=== PATIENT | female | born 1955 | race Caucasian/White ===

== ENCOUNTER 2016-10-25 09:42 | Day surgery (SDC) | payer BC ==
[~2016-10-25] VITALS: Ht 162.6 cm; Wt 80.2 kg
[~2016-10-25 09:42] MED LIST: AMLO5TAB2 PO; ASPI325T PO; ATEN25TA PO; CEPH-583 PO; CYCL5TAB PO; METH10TA7 PO; OMEP20CA10 PO; ONDA4TAB4 PO; ONDA4TAB7 PO; OXYC-532 PO; OXYC1TAB8 PO; POTA-81 PO
--- OUTSIDE RECORDS SUMMARY | 2016-10-25 09:46 | XMS REPORT | Referral Summary ---
Author Author [facility] Organization [facility] Address Unknown Phone Unavailable Care Team Providers Care Radio Equipment Repairer Name Role Phone Tano Rice Primary Care Physician [phone] Encounter Date(s): 05/29/16 - 05/31/16 [facility] [address] [place] [address] Discharge Disposition: 01-Home or Self Care Attending Physician: Toña Stiles MD Admitting Physician: Toña Stiles MD Vital Signs Most recent to 1 oldest [Reference Range]: Temperature Oral 37.3 degC [35.8-37.3 degC] (05/31/16 9:00 AM) Peripheral Pulse 80 bpm Rate [60-100 bpm] (05/31/16 9:11 AM) Heart Rate Monitored 74 bpm [60-100 bpm] (05/29/16 2:50 PM) Respiratory Rate 18 br/min [14-20 br/min] (05/31/16 9:00 AM) Blood Pressure 109/70 mmHg [90-140/60-90 mmHg] (05/31/16 9:11 AM) Mean Arterial 134 mmHg Pressure, Cuff (05/29/16 2:50 PM) SpO2 94 % (05/31/16 9:00 AM) Problem List Condition Effective Dates Status Health Status Informant slightly abnormal Active brain MRI(Confirmed) Acute Active conjunctivitis(Confi rmed) Acute lower Active UTI(Confirmed) Acute Active folliculitis(Confirm ed) Acute maxillary Active sinusitis(Confirmed) Acute Active pain(Confirmed) Acute pulmonary Active edema(Confirmed) Acute Active vomiting(Confirmed) Anxiety Active disorder(Confirmed) ARF due to 2011 Active gastroenteritis and dehydration(Confirme d) At risk for Active infection(Confirmed) 1 At risk of pressure Active sore(Confirmed) Atelectasis(Confirme Active d) Lump of breast, Active right(Confirmed) perforated TM LT Active EAR(Confirmed) Constipation(Confirm Active ed) Dehydration(Confirme Active d) Acute Active diarrhea(Confirmed) DVT(Confirmed) 1995 Active DVT(Confirmed) 1997 Active Dysphagia(Confirmed) Active Epistaxis(Confirmed) Active Fever(Confirmed) Active Fluid Active imbalance(Confirmed) 2 Goiter(Confirmed) Active Herpes Active zoster(Confirmed) High Active cholesterol(Confirme d) History of abnormal Active Pap smear(Confirmed) Hyperlipidemia(Confi Active rmed) Hypertension(Confirm Active ed) Adult Active hypothyroidism(Confi rmed) Kidney Active disease(Confirmed) Kidney Active stones(Confirmed) Acute left flank Active pain(Confirmed) Oral Active leukoplakia(Confirme d) Hypertension, Active malignant(Confirmed) Breast Active patient cancer(Confirmed) Well adult Active exam(Confirmed) Multinodular Active goiter(Confirmed) Neuropathy, Left Active ulnar nerve(Confirmed) Nodule of finger of Active left hand(Confirmed) Paresthesia(Confirme Active d) Ptosis of eyelid, Active left(Confirmed) Pulmonary 1995 Active embolism(Confirmed) Pulmonary 1997 Active embolism(Confirmed) Depression(Confirmed Active ) Abdominal Active tenderness, RUQ (right upper quadrant)(Confirmed) Thyroid Active disease(Confirmed) Urethral Active calculus(Confirmed) 1Problem added automatically by system based on initiation of At Risk for Infection in Nutrition Plan of Care 2Problem added automatically by system based on initiation of Fluid Volume Imbalance Plan of Care Allergies, Adverse Reactions, Alerts Substance Reaction Severity Status antihistamines1 Malignant hypertension Active atorvastatin rash on legs Active HYDROcodone caused pain and swelling in eyes Active methocarbamol caused swelling in eyes and hand Active simvastatin rash on the legs Active 1PT STATES SHE HAS HAD ANTIHISTAMINES WITH HER CHEMO AND HAS NOT HAD A REACTION THUS FAR. pT STATES SHE HAD MALIGNANT HYPERTENSION WITH ANTIHISTAMINES IN THE PAST. Medications amLODIPine 5 mg oral tablet 5 mg 1 tabs, Oral, Daily, 0 Refill(s) Start Date: 05/29/16 Status: Ordered aspirin 325 mg, Oral, Daily, 0 Refill(s) Start Date: 05/29/16 Status: Ordered atenolol 25 mg oral tablet 25 mg 1 tabs, Oral, Daily, 0 Refill(s) Start Date: 05/29/16 Status: Ordered Keflex 500 mg oral capsule 500 mg 1 caps, Oral, TID, X 5 days, # 15 caps, 0 Refill(s) Start Date: 05/31/16 Stop Date: 06/05/16 Status: Ordered methimazole 5 mg oral tablet 5 mg 1 tabs, Oral, TID, # 90 tabs, 0 Refill(s) Start Date: 05/31/16 Stop Date: 06/30/16 Status: Ordered oxyCODONE See Instructions, 7.5 mg Oral twice a week as needed, 0 Refill(s) Start Date: 05/29/16 Status: Ordered PriLOSEC 40 mg oral delayed release capsule 40 mg 1 caps, Oral, Daily, # 60 caps, 1 Refill(s), Pharmacy: [facility] # [id number], 1 caps Oral BID Start Date: 07/20/15 Status: Ordered Zofran ODT 4 mg, Oral, q4hr, as needed for nausea/vomiting, 0 Refill(s) Start Date: 05/29/16 Status: Ordered Results Hematology Most recent to 1 oldest [Reference Range]: WBC [4.8-10.8 2.8 10*3/uL 10*3/uL] *LOW* (05/31/16 4:58 AM) RBC [4.00-5.20] 4.18 (05/31/16 4:58 AM) Hgb [12.0-16.0 12.0 gm/dL gm/dL] (05/31/16 4:58 AM) Hct [37.0-47.0 %] 36.5 % *LOW* (05/31/16 4:58 AM) MCV [82.0-99.0 fL] 87.3 fL (05/31/16 4:58 AM) MCH [27.0-32.0 pg] 28.7 pg (05/31/16 4:58 AM) MCHC [32.0-36.0 32.9 gm/dL gm/dL] (05/31/16 4:58 AM) RDW [11.5-14.5 %] 12.5 % (05/31/16 4:58 AM) Platelet [150-400 166 10*3/uL 10*3/uL] (05/31/16 4:58 AM) MPV [9.4-12.4 fL] 11.3 fL (05/31/16 4:58 AM) Immature 0.4 % Granulocytes (05/30/16 4:50 AM) [0.0-1.0 %] Neutrophils [51-75 33 % %] *LOW* (05/30/16 4:50 AM) Lymphocytes [20-46 42 % %] (05/30/16 4:50 AM) Monocytes [4-11 %] 19 % *HI* (05/30/16 4:50 AM) Eosinophils [0-4 %] 5 % *HI* (05/30/16 4:50 AM) Basophils [0-2 %] 1 % (05/30/16 4:50 AM) Neutro Absolute 0.86 10*3 [1.90-7.00 10*3] *LOW* (05/30/16 4:50 AM) Lymph Absolute 1.11 10*3 [0.80-3.30 10*3] (05/30/16 4:50 AM) [place] Absolute 0.50 10*3 [0.30-1.00 10*3] (05/30/16 4:50 AM) Eos Absolute 0.14 10*3 [0.00-0.50 10*3] (05/30/16 4:50 AM) Baso Absolute 0.02 10*3 [0.00-0.20 10*3] (05/30/16 4:50 AM) Nucleated RBC 0.0 /100 WBC Automated [0 /100 (05/30/16 4:50 AM) WBC] Coagulation Most recent to 1 oldest [Reference Range]: D-Dimer [0-600 830 ng{FEU}/mL 1 ng{FEU}/mL] *HI* (05/29/16 8:09 PM) 1Result Comment: A D Dimer result of <500 ng/mL FEU has a negative predictive value of approximately 100% for the exclusion of DVT and acute PE. Chemistry Most recent to 1 oldest [Reference Range]: Sodium Lvl [136-144 138 mEq/L mEq/L] (05/31/16 4:58 AM) Potassium Lvl 3.9 mEq/L [3.6-5.1 mEq/L] (05/31/16 4:58 AM) Chloride [99-109 105 mEq/L mEq/L] (05/31/16 4:58 AM) CO2 [22-32 mEq/L] 26 mEq/L (05/31/16 4:58 AM) AGAP [3-20] 7 (05/31/16 4:58 AM) BUN [4-20 mg/dL] 11 mg/dL (05/31/16 4:58 AM) Glucose Lvl [70-100 107 mg/dL mg/dL] *HI* (05/31/16 4:58 AM) Creatinine Lvl 0.63 mg/dL [0.44-1.03 mg/dL] (05/31/16 4:58 AM) eGFR [>60] >60 1 (05/31/16 4:58 AM) Calcium Lvl 9.3 mg/dL [8.6-10.0 mg/dL] (05/31/16 4:58 AM) Albumin Lvl [3.5-4.8 3.3 gm/dL gm/dL] *LOW* (05/29/16 12:45 PM) Total Protein 6.5 gm/dL [6.1-7.9 gm/dL] (05/29/16 12:45 PM) Globulin [1.9-4.3 3.2 gm/dL gm/dL] (05/29/16 12:45 PM) ALT [14-54 U/L] 17 U/L (05/29/16 12:45 PM) AST [15-41 U/L] 25 U/L (05/29/16 12:45 PM) Alk Phos [26-104 88 U/L U/L] (05/29/16 12:45 PM) Bili Total [0.2-1.2 1.2 mg/dL 2 mg/dL] (05/29/16 12:45 PM) Troponin [<0.06 <0.05 ng/mL ng/mL] (05/30/16 4:50 AM) 1Result Comment: Multiply eGFR results by 1.21 for race. 2Result Comment: Naproxen, specifically the metabolite O-desmethylnaproxen, may cause spurious elevation in Total Bilirubin levels. Urinalysis Most recent to 1 oldest [Reference Range]: UA Color Yellow (05/29/16 1:28 PM) UA Appear Cloudy *ABN* (05/29/16 1:28 PM) UA pH [5.0-8.0] 8.0 (05/29/16 1:28 PM) UA Leuk Est Pos 2+ [Negative] *ABN* (05/29/16 1:28 PM) UA Nitrite Negative [Negative] (05/29/16 1:28 PM) UA Protein Negative [Negative] (05/29/16 1:28 PM) UA Glucose Negative [Negative] (05/29/16 1:28 PM) UA Ketones Trace [Negative] *ABN* (05/29/16 1:28 PM) UA Urobilinogen 2.0 mg/dL [<1.0 mg/dL] *ABN* (05/29/16 1:28 PM) UA Bili [Negative] Negative (05/29/16 1:28 PM) UA Blood [Negative] Pos 1+ *ABN* (05/29/16 1:28 PM) UA Spec Grav 1.015 [1.003-1.030] (05/29/16 1:28 PM) Type Clean Catch (05/29/16 1:28 PM) UA WBC [0-4] 10-20 *ABN* (05/29/16 1:28 PM) UA RBC [0-2] 5-10 *ABN* (05/29/16 1:28 PM) Epithelial Cells 0-2 (05/29/16 1:28 PM) UA Bacteria Numerous *ABN* (05/29/16 1:28 PM) Crystals Amorphous (05/29/16 1:28 PM) UA Hyal Cast [0-3] 4-6 *ABN* (05/29/16 1:28 PM) UA Mucous Present (05/29/16 1:28 PM) Microbiology Reports TEST: Urine Culture STATUS: Auth (Verified) BODY SITE: SOURCE: Urine COLLECTED DATE/TIME: 05/29/16 1:28 PM Urine Culture Other mixed blossom present - - - - - - - Positive urine culture (even if >100,000 cfu/ml) without presence of symptoms does not require antibiotic treatment unless the patient is or undergoing urinary surgery. Please document as bacteriuria. Enterococcus faecalis >100,000 cfu/ml ORGANISM:Enterococcus faecalis Immunizations Vaccine Date Refusal Reason tetanus/diphth/pertuss (Tdap) adult/adol 12/15/06 pneumococcal 23-polyvalent vaccine 12/02/03 tetanus-diphth toxoids (Td) adult/adol 09/06/96 Procedures Procedure Date Related Diagnosis Body Site Lung - needle biopsy1, 2 05/29/16 Mastectomy3, 4 09/21/15 Esophagogastroduodenoscopy 07/16/15 Fine needle biopsy of lymph node5 04/16/15 Insertion of central venous catheter using 04/16/15 doppler ultrasound (US) guidance6 Colonoscopy7 07/11/14 Laminectomy and discectomy2012 Colonoscopy9 05/21/10 Cardiac catheterization 1995 LASIK - eye surgery twice OD, once OS 1994 Appendectomy 1990 REGAN - with appendectomy 1990 Dilation and curettage 1975 Left Mastoidectomy 1975 Tonsillectomy 1965 Adenoidectomy Cystoscopy/Laser vaporization x4 Echocardiogram Lithotripsy x 2 1about 6 weeks ago 2x2 lung biopsy 3Preoperative injection of isosulfan blue involving left breast Right Mastectomy Right axillary dissection Left prophylactic mastectomy Left axillary sentinel lymph node biopsy 4Left axillary node 2 negative for metastasis. Right axillary contents negative for metastasis. Left breast simple mastectomy, no in situ or invasive neoplasm identified. Right breast simple mastectomy, previous biopsy sites with chronic inflammation, fibrosis and remote hemorrhage. No residual in situ or invasive neoplasm identified 5Right axilla - metastatic poorly - differentiated carcinoma, compatiable with breast primary. Tumor at least 2 mm diameter. 6Insert PowerPort catheter under sono and fluoscopy. 7Normal, repeat in 10 years 8L4-5 9tubular adenoma x3 Social History Social History Type Response Smoking Status Former smoker; Tobacco use per day: Less than 1/4 pack; Number of years: 10 Assessment and Plan No data available for this section
--- OUTSIDE RECORDS SUMMARY | 2016-10-25 09:47 | XMS REPORT | Referral Summary ---
Author Author [facility], [facility] Organization [facility] Address Unknown Phone Unavailable Care Team Providers Care Document Control Associate Name Role Phone Tano Rice Primary Care Physician [phone] Encounter Date(s): 05/23/16 - 05/23/16 [facility], [address] [place] [id number]- Discharge Diagnosis: Esophageal dysphagia Discharge Diagnosis: Mid back pain on left side Discharge Diagnosis: Acute lower UTI Discharge Diagnosis: Acute renal failure Discharge Diagnosis: Hypertension Discharge Diagnosis: Ureterolithiasis Discharge Diagnosis: Granulomatous lymphadenitis Discharge Diagnosis: Toxic multinodular goiter Discharge Disposition: 01-Home or Self Care Attending Physician: Doug Rice MD Admitting Physician: Doug Rice MD Vital Signs Most recent to 1 oldest [Reference Range]: Temperature Tympanic 36.9 degC [36.6-38.1 degC] (05/23/16 11:03 AM) Peripheral Pulse 88 bpm Rate [60-100 bpm] (05/23/16 11:03 AM) Blood Pressure 140/80 mmHg [90-140/60-90 mmHg] (05/23/16 11:03 AM) Problem List Condition Effective Dates Status Health Status Informant slightly abnormal Active brain MRI(Confirmed) Acute Active conjunctivitis(Confi rmed) Acute lower Active UTI(Confirmed) Acute Active folliculitis(Confirm ed) Acute maxillary Active sinusitis(Confirmed) Acute pulmonary Active edema(Confirmed) Acute Active vomiting(Confirmed) Anxiety Active disorder(Confirmed) ARF due to 2011 Active gastroenteritis and dehydration(Confirme d) Atelectasis(Confirme Active d) Lump of breast, Active right(Confirmed) perforated TM LT Active EAR(Confirmed) Constipation(Confirm Active ed) Dehydration(Confirme Active d) Acute Active diarrhea(Confirmed) DVT(Confirmed) 1995 Active DVT(Confirmed) 1997 Active Dysphagia(Confirmed) Active Epistaxis(Confirmed) Active Fever(Confirmed) Active Goiter(Confirmed) Active Herpes Active zoster(Confirmed) High Active [...] d) Ptosis of eyelid, Active left(Confirmed) Pulmonary 1996 Active embolism(Confirmed) Pulmonary 1998 Active embolism(Confirmed) Depression(Confirmed Active ) Abdominal Active tenderness, RUQ (right upper quadrant)(Confirmed) Thyroid Active disease(Confirmed) Urethral Active calculus(Confirmed) Allergies, Adverse Reactions, Alerts Substance Reaction Severity Status antihistamines1 Malignant hypertension Active atorvastatin rash on legs Active HYDROcodone caused pain and swelling in eyes Active methimazole palpitations, mal[place]ise Active methocarbamol caused swelling in eyes and hand Active simvastatin rash on the legs Active 1PT STATES SHE HAS HAD ANTIHISTAMINES WITH HER CHEMO AND HAS NOT HAD A REACTION THUS FAR. pT STATES SHE HAD MALIGNANT HYPERTENSION WITH ANTIHISTAMINES IN THE PAST. Medications amLODIPine 5 mg oral tablet See Instructions, TAKE ONE TABLET BY MOUTH DAILY . MAY TAKE AN EXTRA 2.5-5 MG NEEDED FOR SYSTOLIC BP.160 MM HG, # 30 tabs, eRx: [facility] #[id number], TAKE ONE TABLET BY MOUTH DAILY . MAY TAKE AN EXTRA 2.5-5 MG NEEDED FOR SYSTOLIC BP.160 MM HG Start Date: 05/09/16 Status: Ordered atenolol 25 mg oral tablet 25 mg 1 tabs, Oral, Daily, and takes an additional one occasionally as needed for elevated BP, # 60 tabs, 11 Refill(s), Pharmacy: [facility] #[id number], 1 tabs Oral BID Start Date: 11/05/15 Status: Ordered ibuprofen 200 mg oral tablet 600 mg 3 tabs, Oral, Daily, as needed for headache, and joint pains, 0 Refill(s) Start Date: 10/16/15 Status: Ordered Klor-Con M20 oral tablet, extended release 20 mEq 1 tabs, Oral, Daily, # 60 tabs, 2 Refill(s), Pharmacy: [facility] # [id number], 1 tabs Oral BID Start Date: 08/11/15 Status: Ordered Lomotil 2.5 mg-0.025 mg oral tablet See Instructions, 2 tablets oral after first loose stool, then 1 up 8 per 24 hours, 0 Refill(s) Start Date: 06/18/15 Status: Ordered Percocet 7.5/325 oral tablet 1 tabs, Oral, BID, as needed for pain, # 20 tabs, 0 Refill(s) Start Date: 06/18/15 Status: Ordered PriLOSEC 40 mg oral delayed release capsule 40 mg 1 caps, Oral, Daily, # 60 caps, 1 Refill(s), Pharmacy: [facility] # [id number], 1 caps Oral BID Start Date: 07/20/15 Status: Ordered propylthiouracil 50 mg oral tablet 50 mg 1 tabs, Oral, TID, # 90 tabs, 11 Refill(s), Pharmacy: [facility] # [id number], 1 tabs Oral TID Start Date: 05/23/16 Status: Ordered Zofran 8 mg oral tablet 8 mg 1 tabs, Oral, q8hr, as needed for nausea/vomiting, 0 Refill(s) Start Date: 05/16/16 Status: Ordered Results Hematology Most recent to 1 oldest [Reference Range]: WBC [4.8-10.8 5.0 10*3/uL 10*3/uL] (05/23/16 12:38 PM) RBC [4.00-5.20] 4.52 (05/23/16 12:38 PM) Hgb [12.0-16.0 13.3 gm/dL gm/dL] (05/23/16 12:38 PM) Hct [37.0-47.0 %] 39.7 % (05/23/16 12:38 PM) MCV [82.0-99.0 fL] 87.8 fL (05/23/16 12:38 PM) MCH [27.0-32.0 pg] 29.4 pg (05/23/16 12:38 PM) MCHC [32.0-36.0 33.5 gm/dL gm/dL] (05/23/16 12:38 PM) RDW [11.5-14.5 %] 12.6 % (05/23/16 12:38 PM) Platelet [150-400 239 10*3/uL 10*3/uL] (05/23/16 12:38 PM) MPV [8.8-14.8 fL] 10.9 fL (05/23/16 12:38 PM) Neutrophils [51-75 49 % %] *LOW* (05/23/16 12:38 PM) Lymphocytes [20-46 32 % %] (05/23/16 12:38 PM) Monocytes [4-11 %] 17 % *HI* (05/23/16 12:38 PM) Eosinophils [0-4 %] 2 % (05/23/16 12:38 PM) Basophils [0-2 %] 0 % (05/23/16 12:38 PM) Neutro Absolute 2.45 10*3 [1.90-7.00 10*3] (05/23/16 12:38 PM) Lymph Absolute 1.60 10*3 [0.80-3.30 10*3] (05/23/16 12:38 PM) [place] Absolute 0.85 10*3 [0.30-1.00 10*3] (05/23/16 12:38 PM) Eos Absolute 0.10 10*3 [0.00-0.50 10*3] (05/23/16 12:38 PM) Baso Absolute 0.00 10*3 [0.00-0.20 10*3] (05/23/16 12:38 PM) Differential Manual *ABN* (05/23/16 12:38 PM) Chemistry Most recent to 1 oldest [Reference Range]: Sodium Venous 142 mmol/L [136-145 mmol/L] (05/23/16 12:38 PM) Potassium Venous 3.7 mmol/L 1 [3.5-5.1 mmol/L] (05/23/16 12:38 PM) Calcium Ionized 1.33 mmol/L Venous [1.10-1.30 *HI* mmol/L] (05/23/16 12:38 PM) Total CO2 Venous 25 mmol/L [24-29 mmol/L] (05/23/16 12:38 PM) Glucose Venous 110 mg/dL [70-100 mg/dL] *HI* (05/23/16 12:38 PM) BUN Venous [8-26] 17 (05/23/16 12:38 PM) Creatinine Venous 0.7 mg/dL [0.6-1.2 mg/dL] (05/23/16 12:38 PM) Venous CL [98-109 101 mmol/L mmol/L] (05/23/16 12:38 PM) T4 Free [0.7-1.5 3.0 ng/dL ng/dL] *HI* (05/23/16 12:38 PM) TSH [0.35-4.94] <0.01 *LOW* (05/23/16 12:38 PM) T3 Free [1.7-3.7 17.6 pg/mL pg/mL] *HI* (05/23/16 12:38 PM) 1Result Comment: This test was performed on a whole blood specimen. The presence or absence of hemolysis cannot be assessed. Hemolysis can falsely elevate potassium levels. Normals are for venous specimens only. Urinalysis Most recent to 1 oldest [Reference Range]: UA Color Yellow (05/23/16 12:50 PM) UA Appear Cloudy *ABN* (05/23/16 12:50 PM) UA pH [5.0-8.0] 5.5 (05/23/16 12:50 PM) UA Leuk Est Negative [Negative] (05/23/16 12:50 PM) UA Nitrite Negative [Negative] (05/23/16 12:50 PM) UA Protein Negative [Negative] (05/23/16 12:50 PM) UA Glucose Negative [Negative] (05/23/16 12:50 PM) UA Ketones Negative [Negative] (05/23/16 12:50 PM) UA Urobilinogen 1.0 mg/dL [<1.0 mg/dL] (05/23/16 12:50 PM) UA Bili [Negative] Negative (05/23/16 12:50 PM) UA Blood [Negative] Negative (05/23/16 12:50 PM) UA Spec Grav 1.025 [1.003-1.030] (05/23/16 12:50 PM) Type Clean Catch (05/23/16 12:50 PM) Immunizations Vaccine Date Refusal Reason tetanus/diphth/pertuss (Tdap) adult/adol 12/15/06 pneumococcal 23-polyvalent vaccine 12/02/03 tetanus-diphth toxoids (Td) adult/adol 09/06/96 Procedures Procedure Date Related Diagnosis Body Site Collection of venous blood by venipuncture 05/23/16 Mastectomy1, 2 09/21/15 Esophagogastroduodenoscopy 07/16/15 Fine needle biopsy of lymph node3 04/16/15 Insertion of central venous catheter using 04/16/15 doppler ultrasound (US) guidance4 Colonoscopy5 07/11/14 Laminectomy and discectomy6 2012 Colonoscopy7 05/21/10 Cardiac catheterization 1995 LASIK - eye surgery twice OD, once OS 1994 Appendectomy 1990 REGAN - with appendectomy 1990 Dilation and curettage 1975 Left Mastoidectomy 1975 Tonsillectomy 1965 Adenoidectomy Cystoscopy/Laser vaporization x4 Echocardiogram Lithotripsy x 2 1Preoperative injection of isosulfan blue involving left breast Right Mastectomy Right axillary dissection Left prophylactic mastectomy Left axillary sentinel lymph node biopsy 2Left axillary node 2 negative for metastasis. Right axillary contents negative for metastasis. Left breast simple mastectomy, no in situ or invasive neoplasm identified. Right breast simple mastectomy, previous biopsy sites with chronic inflammation, fibrosis and remote hemorrhage. No residual in situ or invasive neoplasm identified 3Right axilla - metastatic poorly - differentiated carcinoma, compatiable with breast primary. Tumor at least 2 mm diameter. 4Insert PowerPort catheter under sono and fluoscopy. 5Normal, repeat in 10 years 6L4-5 7tubular adenoma x3 Social History Social History Type Response Smoking Status Former smoker; Tobacco use per day: Less than 1/4 pack; Number of years: 10 Assessment and Plan Extracted from: Title: Ambulatory Patient Education Author: Doug Rice MD Date: Allergy Dysphagia Swallowing problems (dysphagia) occur when solids and liquids seem to stick in your throat on the way down to your stomach, or the food takes longer to get to the stomach. Other symptoms include regurgitating food, noises coming from the throat, chest discomfort with swallowing, and a feeling of fullness or the feeling of something being stuck in your throat when swallowing. When blockage in your throat is complete, it may be associated with drooling. CAUSES Problems with swallowing may occur because of problems with the muscles. The food cannot be propelled in the usual manner into your stomach. You may have ulcers, scar tissue, or inflammation in the tube down which food travels from your mouth to your stomach (esophagus), which blocks food from passing normally into the stomach. Causes of inflammation include: Acid reflux from your stomach into your esophagus. Infection. Radiation treatment for cancer. Medicines taken without enough fluids to wash them down into your stomach. You may have nerve problems that prevent signals from being sent to the muscles of your esophagus to contract and move your food down to your stomach. Globus pharyngeus is a relatively common problem in which there is a sense of an obstruction or difficulty in swallowing, without any physical abnormalities of the swallowing passages being found. This problem usually improves over time with reassurance and testing to rule out other causes. DIAGNOSIS Dysphagia can be diagnosed and its cause can be determined by tests in which you swallow a white substance that helps illuminate the inside of your throat ( contrast medium) while X-rays are taken. Sometimes a flexible telescope that is inserted down your throat (endoscopy) to look at your esophagus and stomach is used. TREATMENT If the dysphagia is caused by acid reflux or infection, medicines may be used. If the dysphagia is caused by problems with your swallowing muscles, swallowing therapy may be used to help you strengthen your swallowing muscles. If the dysphagia is caused by a blockage or mass, procedures to remove the blockage may be done. HOME CARE INSTRUCTIONS Try to eat soft food that is easier to swallow and check your weight on a daily basis to be sure that it is not decreasing. Be sure to drink liquids when sitting upright (not lying down). SEEK MEDICAL CARE IF: You are losing weight because you are unable to swallow. You are coughing when you drink liquids (aspiration). You are coughing up partially digested food. SEEK IMMEDIATE MEDICAL CARE IF: You are unable to swallow your own saliva(. You are having shortness of breath or a fever, or both.( You have a hoarse voice along with difficulty swallowing. MAKE SURE YOU: Understand these instructions. Will watch your condition. Will get help right away if you are not doing well or get worse. This information is not intended to replace advice given to you by your health care provider. Make sure you discuss any questions you have with your health care provider. Document Released: 07/21/2001 Document Revised: 08/14/2015 Document Reviewed: [employer] Interactive Patient Education 2016 [employer] No follow up information was provided. Extracted from: Title: multiple problems Author: Doug Rice MD Date: 05/23/16 Impression and Plan Diagnosis Acute lower UTI (PSH03-KO N30.00, Discharge, Medical). Acute renal failure (TIO45-VP N17.9, Discharge, Medical). Esophageal dysphagia (QIC16-RY R13.14, Discharge, Medical). Granulomatous lymphadenitis (NLG00-TF I88.1, Discharge, Medical). Hypertension (ABD21-TY I10, Discharge, Medical). Mid back pain on left side (TBO36-JO M54.9, Discharge, Medical). Toxic multinodular goiter (RZL40-PM E05.20, Discharge, Medical). Ureterolithiasis (WCR87-ZI N20.1, Discharge, Medical). Plan: 1) Take the Propylthiouracil three times a day. 2) See Dr. Guzman. 3) Drink at least one quart of Gatoraid or Pedialyte daily + extra fluids. 4) CT without contrast this week. 5) Lab today. 6) See me in 3-4 weeks. 7) Get back on the Atenolol. 8) Consider a barium esophagram.. Orders Orders (Selected) Outpatient Orders Ordered Office Visit Level 5 Est [id number]: Canceled CT Abdomen Pelvis w/o Contrast: Future (On Hold) Angiotensin Converting Enzyme-Nickerson: CBC w/ Differential: CT Abdomen Pelvis w/o Contrast: CT Chest w/ Contrast: Free T4: Metabolic Panel i-STAT: Routine Urinalysis: T3 Free: TSH 3rd Generation: Prescriptions Prescribed propylthiouracil 50 mg oral tablet: 50 mg=1 tabs, Oral, TID, 90 tabs, 11 Refill( s). Dx/Order Association Plan: Diagnosis: Acute lower UTI Comment: Ordered: Office Visit Level 5 Est [id number]; 05/23/16 12:03:00 CDT, Acute renal failure | Hypertension | Mid back pain on left side | Ureterolithiasis | Toxic multinodular goiter | Acute lower UTI Other status: Routine Urinalysis; Urine, Clean Catch, Routine collect, 05/23/16 12:32:00 CDT, Once, Stop date 05/23/16 12:32:00 CDT, Nurse Collect Non-Blood, Acute lower UTI | Ureterolithiasis (Completed) Diagnosis: Acute renal failure Comment: Ordered: Office Visit Level 5 Est [id number]; 05/23/16 12:03:00 CDT, Acute renal failure | Hypertension | Mid back pain on left side | Ureterolithiasis | Toxic multinodular goiter | Acute lower UTI Other status: CBC w/ Differential; Blood, Routine Collect, 12:31:00 CDT, Once, Stop date 05/23/16 12:31:00 CDT, Lab Collect, Hypertension | Acute renal failure | Ureterolithiasis (Completed) Metabolic Panel i-STAT; Blood, Routine Collect, 05/23/16 12:31:00 CDT, Once, Stop date 05/23/16 12:31:00 CDT, Lab Collect, Acute renal failure | Hypertension | Ureterolithiasis (Canceled) Diagnosis: Esophageal dysphagia Comment: Diagnosis: Granulomatous lymphadenitis Comment: Diagnosis: Hypertension Comment: Ordered: Office Visit Level 5 Est [id number]; 05/23/16 12:03:00 CDT, Acute renal failure | Hypertension | Mid back pain on left side | Ureterolithiasis | Toxic multinodular goiter | Acute lower UTI Other status: CBC w/ Differential; Blood, Routine Collect, 12:31:00 CDT, Once, Stop date 05/23/16 12:31:00 CDT, Lab Collect, Hypertension | Acute renal failure | Ureterolithiasis (Completed) Metabolic Panel i-STAT; Blood, Routine Collect, 05/23/16 12:31:00 CDT, Once, Stop date 05/23/16 12:31:00 CDT, Lab Collect, Acute renal failure | Hypertension | Ureterolithiasis (Canceled) Diagnosis: Mid back pain on left side Comment: Ordered: Office Visit Level 5 Est [id number]; 05/23/16 12:03:00 CDT, Acute renal failure | Hypertension | Mid back pain on left side | Ureterolithiasis | Toxic multinodular goiter | Acute lower UTI Diagnosis: Toxic multinodular goiter Comment: Ordered: Office Visit Level 5 Est [id number]; 05/23/16 12:03:00 CDT, Acute renal failure | Hypertension | Mid back pain on left side | Ureterolithiasis | Toxic multinodular goiter | Acute lower UTI Diagnosis: Ureterolithiasis Comment: Ordered: Office Visit Level 5 Est [id number]; 05/23/16 12:03:00 CDT, Acute renal failure | Hypertension | Mid back pain on left side | Ureterolithiasis | Toxic multinodular goiter | Acute lower UTI Other status: CBC w/ Differential; Blood, Routine Collect, 12:31:00 CDT, Once, Stop date 05/23/16 12:31:00 CDT, Lab Collect, Hypertension | Acute renal failure | Ureterolithiasis (Completed) Routine Urinalysis; Urine, Clean Catch, Routine collect, 05/23/16 12:32:00 CDT, Once, Stop date 05/23/16 12:32:00 CDT, Nurse Collect Non-Blood, Acute lower UTI | Ureterolithiasis (Completed) Metabolic Panel i-STAT; Blood, Routine Collect, 05/23/16 12:31:00 CDT, Once, Stop date 05/23/16 12:31:00 CDT, Lab Collect, Acute renal failure | Hypertension | Ureterolithiasis (Canceled) Additional Orders: Comment: Ordered: propylthiouracil 50 mg oral tablet,50 mg 1 tabs, Oral, TID , # 90 tabs, 11 Refill(s), Pharmacy: [facility] #[id number], 1 tabs Oral TID End of Orders ."
--- OUTSIDE RECORDS SUMMARY | 2016-10-25 09:47 | XMS REPORT | Continuity of Care Document ---
Author Author [facility] Organization [facility] Address Unknown Phone Unavailable Support Name Relationship Address Phone ROCK MONTIEL MD Caregiver [address] [place] [address] Unavailable AMANDA VAUGHN MD Caregiver [address] [place] [address] Unavailable ANGUS RAMIREZ Next Of Kin [address] [place], [place] [id number] Insurance Providers Guarantor Rohan Lambert Address [address] [place] [address] Email [email or web address] [email or web address] [facility] Policy Number [id number] Subscriber's Name RaeannamberRohan Eden Relationship 18 Self Group Number [id number] Effective Date 15 Advance Directives Directive Response Recorded Date/Time Ordered Resuscitation Status Full Code 09/30/16 1:55pm Resuscitation Documents on File No 10/03/16 7:40am DPOA for Healthcare Only No 10/03/16 7:40am Living Will No 10/03/16 7:40am Problems Active Problems Medical Problem Onset Date Status Abdominal pain Unknown Acute Breast cancer Unknown Acute DEHYDRATION Unknown Acute DEHYDRATION Unknown Acute DYSPNEA Unknown Acute DYSPNEA Unknown Acute Leukocytosis Unknown Acute POST OP PAIN Unknown Acute POST OP PAIN Unknown Acute Shingles Unknown Acute Past Problems Medical Problem Onset Date Enterovirus infection Unknown UTI (urinary tract infection) Unknown Medications Current Home Medications Medication Dose Units Route Directions Days Qty Instructions Start Date Amlodipine Besylate 5 Mg Tablet 5 Mg Oral Daily 07/10/14 Aspirin 325 Mg Tablet 325 Mg Oral Daily as needed for Prn Orders 05/15/16 Atenolol 25 Mg Tablet 25 Mg Oral Daily 05/15/16 Cephalexin (Keflex) 500 Mg Capsule 500 Mg Oral Daily 15 Capsule Cyclobenzaprine Hcl 5 Mg Tablet 1 Tab Oral Every 6 Hours as needed for Muscle Spasm 10 Tablet 10/04/16 Methimazole 10 Mg Tablet 1.5 Tab Oral Daily 05/15/16 Omeprazole 20 Mg Capsule.dr 20 Mg Oral Before Breakfast Take 1 capsule, by mouth, one time a day (before breakfast). 09/30/16 Ondansetron (Zofran Odt) 4 Mg Tab.rapdis 4 Mg Oral Q6h/0300,0900,1500,2100 07/10/15 Ondansetron Hcl (Zofran) 4 Mg Tablet 4 Mg Oral Every 6 Hours as needed for Nausea &/Or Vomiting 6 Tablet 10/04/16 Oxycodone Hcl/Acetaminophen (Percocet 5-325 Mg Tablet) 5-325 Tablet 1-2 Tab Oral Every 4-6 Hours Prn as needed for Pain 40 Tablet 10/04/16 Oxycodone Hcl/Acetaminophen (Oxycodon-Acetaminophen 7.5-325) 7.5-325 Tablet 1 Tab Oral Every 4-6 Hours as needed for Pain 05/15/16 Potassium Chloride 20 Meq Tablet.er 20 Meq Oral Daily 07/10/15 Past Home Medications Medication Directions Ordered Status Albuterol 17 Gm Aer.refill, 17 Gm Inhalation 05/14/10 Discontinued Aspirin (Aspir 81) 81 Mg Tablet.dr, 81 Mg Oral 04/30/10 Discontinued Chantix , 04/30/10 Discontinued Ciprofloxacin Hcl (Cipro) 500 Mg Tablet, 500 Mg Oral Twice A Day 01/31/12 Discontinued Hydrocodone Bit/Acetaminophen (Woodward 7.5/325 Tablet) 1 Tab Tablet, 1 Tab Oral As Needed 04/11/13 Discontinued Ibuprofen , 04/30/10 Discontinued Levothyroxine Sodium 25 Mcg Tablet, 25 Mcg Oral Before Breakfast 07/10/14 Discontinued Lisinopril 5 Mg Tablet, 5 Mg Oral Daily 07/10/14 Discontinued Lovastatin , 04/30/10 Discontinued Omeprazole 40 Mg Capsule.dr, 40 Mg Oral Daily 05/15/16 Discontinued Omeprazole 10 Mg Capsule, 10 Mg Oral As Needed 07/11/14 Discontinued Omeprazole 20 Mg Tablet.dr, 20 Mg Oral Before Breakfast 07/10/14 Discontinued Potassium , 04/30/10 Discontinued Potassium Chloride (Klor-Con M20) 20 Meq Tab.prt.sr, 20 Meq Oral Daily Discontinued Promethazine Hcl (Phenergan) 25 Mg Tablet, 25 Mg Oral As Needed 04/11/13 Discontinued Robaxin , Oral As Needed 04/11/13 Discontinued Synthroid , 04/30/10 Discontinued Triamterine , 04/30/10 Discontinued Social History Social History Problem Response Recorded Date/Time Onset Date Status Reason for Hospitalization BILATERAL TISSUE EXPANDERS 10/04/2016 8:54am Not Applicable Not Applicable Chewing Tobacco Status No 04/13/2013 10:08pm Not Applicable Not Applicable Hx Substance Use No 10/03/2016 7:40am Not Applicable Not Applicable Hx Alcohol Use No 10/03/2016 7:40am Not Applicable Not Applicable Has the pt used tobacco in the last 12 months No 10/03/2016 7:40am Not Applicable Not Applicable Query Response Start Date Stop Date Smoking Status Never smoker Hospital Discharge Instructions Instructions: Care Instructions: I was in the hospital because (patient own words): tissue expanders Discharge Diet: Regular Discharge Activity: Refer to pre-operative packet Follow Up Appointments: Follow up with Dr. Montiel on October 06 at 1:40pm Pending Lab / Results: No Pending Lab Patient Instructions: Take Keflex 500 mg daily while drains are in place. Record drainage amounts on log sheet and bring with you to your follow up appointments. Expected Signs/Symptoms: Refer to pre-operative packet Notify Physician If: Refer to pre-operative packet During Business Hours:: Call the office with questions or concerns [phone] After Business Hours:: Call [phone] and have the tomahawk weapon system operator page the physician Pain Management/Treatment: Refer to pre-operative packet Wound/Incision Care: No showering or bathing. You may take sponge baths. You may change gauze dressing if soiled. Condition at time of discharge: Good Plan of Care Discharge Date 10/04/16 10:10am Instructions/Education Provided [facility] Prescriptions See Medication Section Functional Status Query Response Date Recorded Assistive Devices None October 03, 2016 1:23pm Activity Limitations None October 03, 2016 1:23pm Feeding Ability Independent October 03, 2016 1:23pm Toileting Ability Independent October 03, 2016 1:23pm Grooming Ability Independent October 03, 2016 1:23pm Dressing Ability Independent October 03, 2016 1:23pm Driving Ability Independent October 03, 2016 1:23pm Housework Ability Independent October 03, 2016 1:23pm Meal Preparation Ability Independent October 03, 2016 1:23pm Stair Climbing Ability Independent October 03, 2016 1:23pm Ability to complete ADL's impeded by No change October 03, 2016 1:23pm Cognitive/Perceptual Impairments None October 03, 2016 1:23pm Preferred Method of Learning Reading October 03, 2016 1:23pm Allergies, Adverse Reactions, Alerts Allergen Type Severity Reaction Status Last Updated Antihistamines - Alkylamine Adverse Reaction Intermediate HYPOTENSION Active 10/03/16 Tetracyclic antidepressant Adverse Reaction Mild stomach issues Active Hydrocodone Allergy Unknown SWELLING IN EYES Active 10/03/16 Methocarbamol Allergy Unknown SWELLING IN EYES AND HAND Active 10/03/16 Simvastatin Allergy Unknown RASH Active 10/03/16 Atorvastatin Allergy Unknown RASH Active 10/03/16 Immunizations Query Response on File Recorded Date/Time Hx Influenza Vaccination Y fall 201510/03/16 7:40am Hx Pneumococcal Vaccination Y doesnt' know when 10/03/16 7:40am Hx Tetanus, Diptheria, Pertussis No 01/08/15 8:21pm Hx Influenza Vaccination Y fall 201510/03/16 7:40am Hx Tetanus, Diptheria, Pertussis No 01/08/15 8:21pm Influenza Vaccine Hx 09/201505/15/16 7:30am Vital Signs Acute Vital Signs Vital Response Date/Time Temperature (Fahrenheit) 96.9 deg F (96.8 - 99.1) 10/04/2016 7:16am Temperature (Calculated Celsius) 36.49593 degrees C (36.0 - 37.3) 10/04/2016 7:16am Temperature Source Oral 10/04/2016 7:16am Pulse Rate (adult) 71 bpm (60 - 100) 10/04/2016 7:16am Respiratory Rate 16 breaths/min (10 - 20) 10/04/2016 7:16am O2 Sat by Pulse Oximetry 92 % (90 - 100) 10/04/2016 7:16am Oxygen Delivery Method Nasal Cannula 10/04/2016 7:16am Oxygen Delivery Method Nasal Cannula 10/03/2016 1:27pm Oxygen Flow Rate 1.00 L/min 10/04/2016 7:16am Blood Pressure 111/69 mm Hg 10/04/2016 7:16am Blood Pressure Source Automatic Cuff 10/04/2016 7:16am Height (Feet) 5 feet 10/03/2016 7:11am Height (Inches) 4.00 inches 10/03/2016 7:11am Weight (Kilograms) 84.000 kg 10/04/2016 7:16am Body Mass Index (BMI) 30.9 10/03/2016 7:11am Results No known relevant diagnostic tests, laboratory data and/or discharge summary. Procedures Procedure Status Date Provider(s) Breast reconstruction Completed 10/03/16 ROCK MONTIEL MD Encounters Encounter Location Arrival/Admit Date Discharge/Depart Date Attending Provider Departed [facility] 10/03/16 6:50am 10/04/16 10 :10am ROCK MONTIEL MD
--- OUTSIDE RECORDS SUMMARY | 2016-10-25 09:47 | XMS REPORT | Referral Summary ---
Author Author [facility], Family Medicine Organization [facility] Address Unknown Phone Unavailable Care Team Providers Care Environmental Field Professional Name Role Phone Tano Rice Primary Care Physician [phone] Encounter Date(s): 09/28/16 - 09/28/16 [facility], [address] [place] [id number] Discharge Diagnosis: Renal lithiasis Discharge Diagnosis: Depression Discharge Diagnosis: Acute bronchitis Discharge Diagnosis: Need for Tdap vaccination Discharge Diagnosis: Well adult exam Discharge Diagnosis: Benign essential hypertension Discharge Diagnosis: Granulomatous lymphadenitis Discharge Diagnosis: Toxic multinodular goiter Discharge Diagnosis: Primary hypercholesterolemia Discharge Diagnosis: History of breast cancer Discharge Diagnosis: Acute lower UTI Discharge Disposition: 01-Home or Self Care Attending Physician: Doug Rice MD Admitting Physician: Doug Rice MD Vital Signs Most recent to 1 oldest [Reference Range]: Temperature Tympanic 37.0 degC [36.6-38.1 degC] (09/28/16 7:44 AM) Peripheral Pulse 56 bpm Rate [60-100 bpm] *LOW* (09/28/16 7:44 AM) Blood Pressure 126/80 mmHg [90-140/60-90 mmHg] (09/28/16 7:44 AM) Problem List Condition Effective Dates Status [...] caused swelling in eyes and hand Active promethazine felt like I was dying, anxiety Active simvastatin rash on the legs Active tetracycline nausea/vomiting Active 1PT STATES SHE HAS HAD ANTIHISTAMINES WITH HER CHEMO AND HAS NOT HAD A REACTION THUS FAR. pT STATES SHE HAD MALIGNANT HYPERTENSION WITH ANTIHISTAMINES IN THE PAST. Medications amLODIPine 5 mg oral tablet See Instructions, TAKE ONE TABLET BY MOUTH DAILY . MAY TAKE AN EXTRA 2.5-5 MG NEEDED FOR SYSTOLIC BP.160 MM HG, # 30 tabs, 1 Refill(s), eRx: [facility] #[id number], TAKE ONE TABLET BY MOUTH DAILY . MAY TAKE AN EXTRA 2.5-5 MG NEEDED FOR SYSTOLI... Start Date: 08/12/16 Status: Ordered amoxicillin-clavulanate 875 mg-125 mg oral tablet 1 tabs, Oral, q12hr, X 10 days, # 20 tabs, 0 Refill(s), Pharmacy: [facility] #[id number] Start Date: 09/19/16 Stop Date: 09/29/16 Status: Ordered atenolol 25 mg oral tablet 25 mg 1 tabs, Oral, Daily, 0 Refill(s) Start Date: 05/29/16 Status: Ordered Klor-Con M20 oral tablet, extended release 20 mEq, Oral, Daily, # 90 tabs, 3 Refill(s), Pharmacy: [facility] #[id number] , 20 mEq Oral Daily,x90 days Start Date: 06/01/16 Stop Date: 05/27/17 Status: Ordered Macrobid 100 mg oral capsule 100 mg 1 caps, Oral, Daily, X 30 days, # 30 caps, 1 Refill(s), Pharmacy: [facility] #[id number], 1 caps Oral Daily,x30 days Start Date: 09/28/16 Stop Date: 11/27/16 Status: Ordered methimazole 5 mg oral tablet See Instructions, 3 tabs daily, # 90 tabs, 0 Refill(s) Start Date: 05/31/16 Status: Ordered omeprazole 20 mg oral delayed release capsule 20 mg 1 caps, Oral, Daily, # 30 caps, 0 Refill(s) Start Date: 09/19/16 Status: Ordered Percocet 10/325 oral tablet 1 tabs, Oral, TID, as needed ear pain, bone pain, and achiness, 3/ month, on average, 0 Refill(s) Start Date: 09/19/16 Status: Ordered solifenacin 10 mg oral tablet 10 mg 1 tabs, Oral, Daily, # 90 tabs, 0 Refill(s), Pharmacy: [facility] # [id number], 1 tabs Oral Daily,x90 days Start Date: 08/22/16 Stop Date: 11/20/16 Status: Ordered Results Hematology Most recent to 1 oldest [Reference Range]: WBC [4.8-10.8 6.4 10*3/uL 10*3/uL] (09/28/16 8:06 AM) RBC [4.00-5.20] 4.58 (09/28/16 8:06 AM) Hgb [12.0-16.0 13.4 gm/dL gm/dL] (09/28/16 8:06 AM) Hct [37.0-47.0 %] 41.2 % (09/28/16: AM) MCV [82.0-99.0 fL] 90.0 fL (09/28/16: AM) MCH [27.0-32.0 pg] 29.3 pg (09/28/16: AM) MCHC [32.0-36.0 32.5 gm/dL gm/dL] (09/28/16 8:06 AM) RDW [11.5-14.5 %] 13.7 % (09/28/16: AM) Platelet [150-400 241 10*3/uL 10*3/uL] (09/28/16 8:06 AM) MPV [8.8-14.8 fL] 11.9 fL (09/28/16 AM) Immature 0.2 % Granulocytes (09/28/16) [0.0-1.0 %] Neutrophils [51-75 52 % %] (09/28/16 8:06 AM) Lymphocytes [20-46 31 % %] (09/28/16: AM) Monocytes [4-11 %] 10 % (09/28/16 8:06 AM) Eosinophils [0-4 %] 6 % *HI* (09/28/16: AM) Basophils [0-2 %] 1 % (09/28/16:06 AM) Neutro Absolute 3.32 [1.90-7.00] (09/28/16 8:06 AM) Lymph Absolute 1.98 [0.80-3.30] (09/28/16 8:06 AM) [place] Absolute 0.64 [0.30-1.00] (09/28/16 8:06 AM) Eos Absolute 0.41 [0.00-0.50] (09/28/16 8:06 AM) Baso Absolute 0.03 [0.00-0.20] (09/28/16 8:06 AM) Chemistry Most recent to 1 oldest [Reference Range]: Sodium Lvl [135-144 141 mEq/L mEq/L] (09/28/16 8:06 AM) Potassium Lvl 4.7 mEq/L [3.5-5.2 mEq/L] (09/28/16 8:06 AM) Chloride [99-111 107 mEq/L mEq/L] (09/28/16 8:06 AM) CO2 [22-31 mEq/L] 25 mEq/L (09/28/16 8: AM) AGAP [3-20] 9 (09/28/16 8:06 AM) BUN [10-20 mg/dL] 20 mg/dL (09/28/16 8:06 AM) Glucose Lvl [70-99 93 mg/dL mg/dL] (09/28/16: AM) Creatinine Lvl 0.87 mg/dL [0.57-1.11 mg/dL] (09/28/16 8:06 AM) eGFR [>60 mL/min] >60 mL/min 1 (09/28/16 AM) Calcium Lvl 9.5 mg/dL 2 [8.4-10.2 mg/dL] (09/28/16 8:06 AM) Albumin Lvl [3.5-5.0 4.1 gm/dL gm/dL] (09/28/16 8: AM) Total Protein 7.0 gm/dL [6.0-7.6 gm/dL] (09/28/16 8:06 AM) Globulin [1.8-4.0 2.9 gm/dL gm/dL] (09/28/16 8:06 AM) ALT [0-55 U/L] 13 U/L (09/28/16 8:06 AM) AST [5-34 U/L] 14 U/L (09/28/16 8:06 AM) Alk Phos [40-150 156 U/L U/L] *HI* (09/28/16 8:06 AM) Bili Total [0.2-1.2 0.5 mg/dL mg/dL] (09/28/16 8:06 AM) Chol [0-199 mg/dL] 186 mg/dL (09/28/16 8:06 AM) Trig [0-149 mg/dL] 108 mg/dL (09/28/16 8:06 AM) HDL [40-84 mg/dL] 43 mg/dL (09/28/16 8:06 AM) LDL [0-130 mg/dL] 121 mg/dL (09/28/16 8:06 AM) VLDL Cholesterol 22 mg/dL [0-28 mg/dL] (09/28/16 8:06 AM) Cardiac Risk 4.3 [0.0-5.0] (09/28/16 8:06 AM) TSH [0.35-4.94] 0.03 *LOW* (09/28/16 8:06 AM) 1Result Comment: Multiply eGFR results by 1.21 for race. 2Result Comment: Please note reference range change effective 09/09/2016. Immunizations Given and Recorded Vaccine Date Status Refusal Reason tetanus/diphth/pertuss (Tdap) adult/adol 09/28/16 Given tetanus/diphth/pertuss (Tdap) adult/adol 12/15/06 Recorded influenza virus vaccine, inactivated 06/15/16 Given pneumococcal 23-polyvalent vaccine 12/02/03 Recorded tetanus-diphth toxoids (Td) adult/adol 09/06/96 Recorded Procedures Procedure Date Related Diagnosis Body Site Collection of venous blood by venipuncture 09/28/16 Lung - needle biopsy1, 2 05/29/16 Mastectomy3, 4 09/21/15 Esophagogastroduodenoscopy 07/16/15 Fine needle biopsy of lymph node5 04/16/15 Insertion of central venous catheter using 04/16/15 doppler ultrasound (US) guidance6 Colonoscopy7 07/11/14 Laminectomy and discectomy8 2012 Colonoscopy9 05/21/10 Cardiac catheterization 1995 LASIK - eye surgery twice OD, once OS 1994 Appendectomy 1990 REGAN - with appendectomy 1990 Dilation and curettage 1975 Left Mastoidectomy 1976 Tonsillectomy 1966 Adenoidectomy Cystoscopy/Laser vaporization x4 Echocardiogram Lithotripsy x [...] Patient Education Author: Doug Rice MD Date: 09/28 Obstetrics and Gynecology Breast Cancer Survivor Follow-up Breast cancer treatment aims to get rid of all cancer cells, but sometimes a few remain in the body. These cells can then grow and cause the cancer to return (recur). If this happens, the goal is to find the cancer as soon as possible. Cancer can recur just a few months after treatment or years later. Most cases of recurrent breast cancer develop 35 years after treatment. WILL MY CANCER RETURN? There is no way to know if your breast cancer will return. However, your chance of developing recurrent breast cancer is greater if you had: Breast cancer before 60 years of age. Breast cancer that involved the lymph nodes. A tumor that was bigger than 2 inches (5 cm). A high-grade tumor. These are tumors that grow more quickly than other types of tumors. A close tumor margin. This means the space between the tumor and normal, noncancerous cells was small. Inflammatory breast cancer. HER2 cancer. Surgery to remove the tumor but not the entire breast (lumpectomy) and no radiation therapy. SYMPTOMS OF RECURRENT BREAST CANCER Examine your breasts every month. You may find it helpful to do this on the same day each month and manuel your calendar as a reminder. Let your health care provider know immediately if you have any signs or symptoms of recurrent breast cancer. Signs and symptoms of recurrent breast cancer vary. It depends on where the cancer is and how the original cancer was treated. Symptoms of a cancer that comes back in the same spot (local recurrence) after a lumpectomy, or a recurrence in the opposite breast may include: A new lump or thickening in the breast. A change in the way the skin of the breast looks (such as a rash, dimpling, or wrinkling). Redness or swelling of the breast. Changes in the nipple (such as it may be red, puckered, swollen, or leaking fluid). Symptoms of a recurrence after breast removal surgery (mastectomy) may include: A lump or thickening under the skin. A thickening around the mastectomy scar. Symptoms of a cancer that comes back in the lymph nodes near the breast ( regional recurrence) may include: A lump under the arm or above the collarbone. Swelling of the arm. Pain in the arm, shoulder, or chest. Numbness in the hand or arm. Symptoms of cancer that comes back in an area of the body far away from the original cancer site (distant recurrence) may include: A cough that does not go away. Trouble breathing or shortness of breath. Pain in the bones or the chest. This is pain that lasts or does not improve with rest and medicine. Headaches. Sudden vision problems. Dizziness. Nausea or vomiting. Weight loss. Persistent abdominal pain. Changes in bowel movements or blood in the stool. Yellowing of the skin or eyes (jaundice). Blood in the urine or bloody vaginal discharge. FOLLOWING UP WITH YOUR HEALTH CARE PROVIDER Decide who your primary health care provider will be. Most people continue to see their cancer specialist (oncologist) every 36 months for the first year after cancer treatment. At some point, you may want to go back to seeing a family health care provider instead of your oncologist for regular checkups. Many women do this about 1 year after getting a breast cancer diagnosis. You would still need to see your oncologist as directed. You should also: Keep a schedule of appointments for the tests and exams you need ( including physical exams, breast exams, and exams of the lymph nodes). For the first 3 years after being treated for breast cancer, see your health care provider every 36 months. In the fourth and fifth years after being treated for breast cancer, see your health care provider every 612 months. From 5 years on after your breast cancer treatment, see your health care provider at least once a year. Continue to have regular breast X-rays (mammograms), even if you had a mastectomy. Get a mammogram 1 year after the mammogram that first detected breast cancer. Get a mammogram every 612 months after that or as often as your health care provider suggests. Have a pelvic exam every year or as often as your health care provider suggests. Some tests are not recommended for routine screening. Someone recovering from breast cancer does not need to have these tests if there are no problems. The tests have risks, such as radiation exposure, and can be costly. The risks of these tests are thought to be greater than the benefits: Blood tests. Chest X-rays. Bone scans. Liver ultrasound. CT. MRI. Positron emission tomography (PET scan). SEEK MEDICAL CARE IF: You have any signs or symptoms of recurrent breast cancer. You are taking a medicine prescribed to treat your breast cancer and have vaginal bleeding. You discover new lumps in your breast. You have headaches, bone, chest, or abdominal pain. You have shortness of breath. You have a cough that does not go away. You have discharge from your nipple. You have a rash on your breast. SEEK IMMEDIATE MEDICAL CARE IF: You have trouble breathing. You have chest pain. This information is not intended to replace advice given to you by your health care provider. Make sure you discuss any questions you have with your health care provider. Document Released: 03/21/2012 Document Revised: 07/29/2014 Document Reviewed: [employer] Patient Education 2016 [employer]. No follow up information was provided. Extracted from: Title: Female Physical Author: Doug Rice MD Date: 09/28/16 Impression and Plan Diagnosis Well adult exam (CGZ90-NZ Z00.00, Discharge, Medical). History of breast cancer (LDM50-FU Z85.3, Discharge, Medical). Depression (OAT15-MQ F33.0, Discharge, Medical). Benign essential hypertension (GKP16-QM I10, Discharge, Medical). Acute bronchitis (COR70-VM J20.9, Discharge, Medical). Renal lithiasis (YTY30-SY N20.0, Discharge, Medical). Acute lower UTI (TRS99-WN N30.00, Discharge, Medical). Toxic multinodular goiter (TLI71-ET E05.20, Discharge, Medical). Granulomatous lymphadenitis (FDV70-NR I88.1, Discharge, Medical). Primary hypercholesterolemia (OMJ39-PU E78.00, Discharge, Medical). Need for Tdap vaccination (XWO82-FB Z23, Discharge, Medical). Plan: 1) Tdap given. 2) Fasting lab ordered. 3) Continue your current meds. 4) Healthy diet and daily exercise helps most things. 5) Shingles vaccine due in 2-3 years. 6) ECG done--stable. 7) CT reviewed--looks good. 8) Start Macrobid daily after completing the Augmentin. 9) You are cleared for breast reconstruction surgery. 10) You refused to see the urologist.. Orders Orders (Selected) Outpatient Orders InProcess (In Process) CMP: Fasting Lipid Profile: TSH 3rd Generation: eGFR: Ordered Electrocardiogram, Routine Ecg With At Least 12 Leads; Interpretation And Report Only [id number]: Periodic Comp Preventive Med 40 to 64 years Est 95157: Ordered (Pending Collection) Routine Urinalysis: Completed Boostrix (Tdap): 0.5 mL, IntraMuscular, Once CBC w/ Differential: Prescriptions Prescribed Macrobid 100 mg oral capsule: 100 mg=1 caps, Oral, Daily, for 30 days, 30 caps, 1 Refill(s). Dx/Order Association Plan: Diagnosis: Acute bronchitis Comment: Diagnosis: Acute lower UTI Comment: Ordered: Routine Urinalysis; Urine, Clean Catch, Routine collect, 09/28/16 8:01:00 [employer], Once, Stop date 09/28/16 8:01:00 [employer], Nurse Collect Non- Blood, Acute lower UTI | Renal lithiasis | Well adult exam Other status: CBC w/ Differential; Blood, Routine Collect, 8:01:00 [employer], Once, Stop date 09/28/16 8:01:00 [employer]ER, Lab Collect, Acute lower UTI | Benign essential hypertension | Toxic multinodular goiter | Well adult exam (Completed) Diagnosis: Benign essential hypertension Comment: Ordered: Electrocardiogram, Routine Ecg With At Least 12 Leads; Interpretation And Report Only [id number]; 09/28/16 7:26:00 [employer], 1, Benign essential hypertension | Well adult exam Other status: CBC w/ Differential; Blood, Routine Collect, 8:01:00 [employer]ER, Once, Stop date 09/28/16 8:01:00 [employer]ER, Lab Collect, Acute lower UTI | Benign essential hypertension | Toxic multinodular goiter | Well adult exam (Completed) Diagnosis: Depression Comment: Diagnosis: Granulomatous lymphadenitis Comment: Diagnosis: History of breast cancer Comment: Diagnosis: Need for Tdap vaccination Comment: Other status: Boostrix (Tdap); 0.5 mL, IntraMuscular, Once, First Dose: 09/28/16 8:00:00 [employer], Stop Date: 09/28/16 8:00:00 [employer] (Completed) Diagnosis: Primary hypercholesterolemia Comment: Diagnosis: Renal lithiasis Comment: Ordered: Routine Urinalysis; Urine, Clean Catch, Routine collect, 09/28/16 8:01:00 [employer], Once, Stop date 09/28/16 8:01:00 [employer], Nurse Collect Non- Blood, Acute lower UTI | Renal lithiasis | Well adult exam Diagnosis: Toxic multinodular goiter Comment: Other status: CBC w/ Differential; Blood, Routine Collect, 8:01:00 [employer], Once, Stop date 09/28/16 8:01:00 [employer], Lab Collect, Acute lower UTI | Benign essential hypertension | Toxic multinodular goiter | Well adult exam (Completed) Diagnosis: Well adult exam Comment: Ordered: Routine Urinalysis; Urine, Clean Catch, Routine collect, 09/28/16 8:01:00 [employer]ER, Once, Stop date 09/28/16 8:01:00 [employer]ER, Nurse Collect Non- Blood, Acute lower UTI | Renal lithiasis | Well adult exam Electrocardiogram, Routine Ecg With At Least 12 Leads; Interpretation And Report Only [id number]; 09/28/16 7:26:00 [employer], 1, Benign essential hypertension | Well adult exam Periodic Comp Preventive Med 40 to 64 years Est [id number]; 09/28/16 7:25:00 [employer]ER, Well adult exam Other status: CBC w/ Differential; Blood, Routine Collect, 8:01:00 [employer]ER, Once, Stop date 09/28/16 8:01:00 [employer]ER, Lab Collect, Acute lower UTI | Benign essential hypertension | Toxic multinodular goiter | Well adult exam (Completed) Additional Orders: Comment: Ordered: Macrobid 100 mg oral capsule,100 mg 1 caps, Oral, Daily, X 30 days, # 30 caps, 1 Refill(s), Pharmacy: [facility] #[id number], 1 caps Oral Daily,x30 days End of Orders ."
--- OUTSIDE RECORDS SUMMARY | 2016-10-25 09:48 | XMS REPORT | Referral Summary ---
Author Author [facility], [facility] Organization [facility] Address Unknown Phone Unavailable Care Team Providers Care Nail Welter Name Role Phone Tano Rice Primary Care Physician [phone] Encounter Date(s): 06/29/16 - 06/29/16 [facility] [place] [id number] Discharge Diagnosis: Acute lower UTI Discharge Diagnosis: Granulomatous lymphadenitis Discharge Diagnosis: Renal lithiasis Discharge Diagnosis: Polyneuropathy Discharge Diagnosis: Benign essential hypertension Discharge Diagnosis: Acute pyelonephritis Discharge Diagnosis: Toxic multinodul goiter Discharge Disposition: 01-Home or Self Care Attending Physician: Doug Rice MD Admitting Physician: Doug Rice MD Vital Signs Most recent to 1 oldest [Reference Range]: Temperature Tympanic 37.4 degC [36.6-38.1 degC] (06/29/16 10:46 AM) Peripheral Pulse 72 bpm Rate [60-100 bpm] (06/29/16 10:46 AM) Respiratory Rate 16 br/min [14-20 br/min] (06/29/16 10:46 AM) Blood Pressure 130/84 mmHg [90-140/60-90 mmHg] (06/29/16 10:46 AM) Problem List Condition Effective Dates Status [...] 0 Refill(s) Start Date: 05/29/16 Status: Ordered amoxicillin 500 mg oral capsule 500 mg 1 caps, Oral, TID, X 10 days, # 30 caps, 0 Refill(s), Pharmacy: [facility] #[id number], 1 caps Oral TID,x10 days Start Date: 06/29/16 Stop Date: 07/09/16 Status: Ordered aspirin 325 mg, Oral, Daily, 0 Refill(s) Start Date: 05/29/16 Status: Ordered atenolol 25 mg oral tablet 25 mg 1 tabs, Oral, Daily, 0 Refill(s) Start Date: 05/29/16 Status: Ordered cephalexin 250 mg oral capsule 500 mg 2 caps, Oral, Daily, took one dose yesterday, 0 Refill(s) Start Date: 06/29/16 Status: Ordered Klor-Con M20 oral tablet, extended release 20 mEq, Oral, Daily, # 90 tabs, 3 Refill(s), Pharmacy: [facility] #[id number] , 20 mEq Oral Daily,x90 days Start Date: 06/01/16 Stop Date: 05/27/17 Status: Ordered methimazole 5 mg oral tablet 5 mg 1 tabs, Oral, TID, # 90 tabs, 0 Refill(s) Start Date: 05/31/16 Stop Date: 06/30/16 Status: Ordered oxyCODONE See Instructions, 7.5 mg Oral twice a week as needed, 0 Refill(s) Start Date: 05/29/16 Status: Ordered PriLOSEC 40 mg oral delayed release capsule 40 mg 1 caps, Oral, Daily, # 60 caps, 1 Refill(s), Pharmacy: [facility] # [id number], 1 caps Oral BID Start Date: 07/20/15 Status: Ordered Results No data available for this section Immunizations Vaccine Date Refusal Reason tetanus/diphth/pertuss (Tdap) adult/adol 12/15/06 influenza virus vaccine, inactivated 06/15/16 pneumococcal 23-polyvalent vaccine 12/02/03 tetanus-diphth toxoids (Td) adult/adol 09/06/96 Procedures Procedure Date Related Diagnosis Body Site Lung - needle biopsy1, 2 05/29/16 Mastectomy3, 4 09/21/15 Esophagogastroduodenoscopy 07/16/15 Fine needle biopsy of lymph node5 04/16/15 Insertion of central venous catheter using 04/16/15 doppler ultrasound (US) guidance6 Colonoscopy7 07/11/14 Laminectomy and discectomy8 2012 Colonoscopy05/21/10 Cardiac catheterization 1995 LASIK - eye surgery [...] Patient Education Author: Doug Rice MD Date: Procedures Lithotripsy Lithotripsy is a treatment that can sometimes help eliminate kidney stones and pain that they cause. A form of lithotripsy, also known as extracorporeal shock wave lithotripsy, is a nonsurgical procedure that helps your body rid itself of the kidney stone when it is too big to pass on its own. Extracorporeal shock wave lithotripsy is a method of crushing a kidney stone with shock waves. These shock waves pass through your body and are focused on your stone. They cause the kidney stones to crumble while still in the urinary tract. It is then easier for the smaller pieces of stone to pass in the urine. Lithotripsy usually takes about an hour. It is done in a hospital, a lithotripsy center, or a mobile unit. It usually does not require an overnight stay. Your health care provider will instruct you on preparation for the procedure. Your health care provider will tell you what to expect afterward. LET YOUR HEALTH CARE PROVIDER KNOW ABOUT: Any allergies you have. All medicines you are taking, including vitamins, herbs, eye drops, creams, and yzpf-hxr-mrohdck medicines. Previous problems you or members of your family have had with the use of anesthetics. Any blood disorders you have. Previous surgeries you have had. Medical conditions you have. RISKS AND COMPLICATIONS Generally, lithotripsy for kidney stones is a safe procedure. However, as with any procedure, complications can occur. Possible complications include: Infection. Bleeding of the kidney. Bruising of the kidney or skin. Obstruction of the ureter. Failure of the stone to fragment. BEFORE THE PROCEDURE Do not eat or drink for 68 hours prior to the procedure. You may, however, take the medications with a sip of water that your physician instructs you to take Do not take aspirin or aspirin-containing products for 7 days prior to your procedure Do not take nonsteroidal anti-inflammatory products for 7 days prior to your procedure PROCEDURE A stent (flexible tube with holes) may be placed in your ureter. The ureter is the tube that transports the urine from the kidneys to the bladder. Your health care provider may place a stent before the procedure. This will help keep urine flowing from the kidney if the fragments of the stone block the ureter. You may have an IV tube placed in one of your veins to give you fluids and medicines. These medicines may help you relax or make you sleep. During the procedure, you will lie comfortably on a fluid-filled cushion or in a warm-water bath. After an X-ray or ultrasound exam to locate your stone, shock waves are aimed at the stone. If you are awake, you may feel a tapping sensation as the shock waves pass through your body. If large stone particles remain after treatment, a second procedure may be necessary at a later date. For comfort during the test: Relax as much as possible. Try to remain still as much as possible. Try to follow instructions to speed up the test. Let your health care provider know if you are uncomfortable, anxious, or in pain. AFTER THE PROCEDURE After surgery, you will be taken to the recovery area. A nurse will watch and check your progress. Once you're awake, stable, and taking fluids well, you will be allowed to go home as long as there are no problems. You will also be allowed to pass your urine before discharge.You may be given antibiotics to help prevent infection. You may also be prescribed pain medicine if needed. In a week or two, your health care provider may remove your stent, if you have one. You may first have an X-ray exam to check on how successful the fragmentation of your stone has been and how much of the stone has passed. Your health care provider will check to see whether or not stone particles remain. SEEK IMMEDIATE MEDICAL CARE IF: You develop a fever or shaking chills. Your pain is not relieved by medicine. You feel sick to your stomach (nauseated) and you vomit. You develop heavy bleeding. You have difficulty urinating. You start to pass your stent from your penis. This information is not intended to replace advice given to you by your health care provider. Make sure you discuss any questions you have with your health care provider. Document Released: 07/21/2001 Document Revised: 08/14/2015 Document Reviewed: [email or web address] Patient Education 2016 [email or web address] No follow up information was provided. Extracted from: Title: multiple problems Author: Doug Rice MD Date: 06/29/16 Impression and Plan Diagnosis Acute pyelonephritis (KOV95-XS N10, Discharge, Medical). Acute lower UTI (OYI87-JD N30.00, Discharge, Medical). Renal lithiasis (BEZ57-LU N20.0, Discharge, Medical). Benign essential hypertension (HPD44-UE I10, Discharge, Medical). Granulomatous lymphadenitis (XJS82-IN I88.1, Discharge, Medical). Polyneuropathy (ASV94-VR G62.9, Discharge, Medical). Toxic multinodul goiter (ZRF83-XI E05.20, Discharge, Medical). Plan: 1) You need IV Rocephin 1 gm daily for 6 days with IV services. They can use your PAC. 2) Take Amoxicillin as directed, for 10 days. 3) See the urologist for your recurrent left pyelonephritis and left renal lithiasis. 4) See me on July 12, as scheduled. 5) Continue your routine meds otherwise. 6) Rest at home otherwise. You refused to be off work, unfortunately.. Orders Orders (Selected) Outpatient Orders Ordered Office Visit Level 5 Est 32657: Discontinued Office Visit Level 4 Est 22753: Future (On Hold) CT Chest Abdomen Pelvis w/ Contrast: CT Chest w/ Contrast: Prescriptions Prescribed amoxicillin 500 mg oral capsule: 500 mg=1 caps, Oral, TID, for 10 days, 30 caps , 0 Refill(s). Dx/Order Association Plan: Diagnosis: Acute lower UTI Comment: Ordered: Office Visit Level 5 Est 38383; 06/29/16 11:41:00 AGENTS' RECORDS CLERK, Acute pyelonephritis | Acute lower UTI | Toxic multinodul goiter | Benign essential hypertension | Renal lithiasis | Granulomatous lymphadenitis | Polyneuropathy Discontinued: Office Visit Level 4 Est 92446; 06/29/16 11:32:00 AGENTS' RECORDS CLERK, Acute pyelonephritis | Acute lower UTI | Renal lithiasis | Benign essential hypertension | Granulomatous lymphadenitis | Polyneuropathy Diagnosis: Acute pyelonephritis Comment: Ordered: Office Visit Level 5 Est 17493; 06/29/16 11:41:00 AGENTS' RECORDS CLERK, Acute pyelonephritis | Acute lower UTI | Toxic multinodul goiter | Benign essential hypertension | Renal lithiasis | Granulomatous lymphadenitis | Polyneuropathy Discontinued: Office Visit Level 4 Est 15470; 06/29/16 11:32:00 AGENTS' RECORDS CLERK, Acute pyelonephritis | Acute lower UTI | Renal lithiasis | Benign essential hypertension | Granulomatous lymphadenitis | Polyneuropathy Diagnosis: Benign essential hypertension Comment: Ordered: Office Visit Level 5 Est 15912; 06/29/16 11:41:00 AGENTS' RECORDS CLERK, Acute pyelonephritis | Acute lower UTI | Toxic multinodul goiter | Benign essential hypertension | Renal lithiasis | Granulomatous lymphadenitis | Polyneuropathy Discontinued: Office Visit Level 4 Est 70670; 06/29/16 11:32:00 AGENTS' RECORDS CLERK, Acute pyelonephritis | Acute lower UTI | Renal lithiasis | Benign essential hypertension | Granulomatous lymphadenitis | Polyneuropathy Diagnosis: Granulomatous lymphadenitis Comment: Ordered: Office Visit Level 5 Est 29761; 06/29/16 11:41:00 AGENTS' RECORDS CLERK, Acute pyelonephritis | Acute lower UTI | Toxic multinodul goiter | Benign essential hypertension | Renal lithiasis | Granulomatous lymphadenitis | Polyneuropathy Discontinued: Office Visit Level 4 Est 82531; 06/29/16 11:32:00 AGENTS' RECORDS CLERK, Acute pyelonephritis | Acute lower UTI | Renal lithiasis | Benign essential hypertension | Granulomatous lymphadenitis | Polyneuropathy Diagnosis: Polyneuropathy Comment: Ordered: Office Visit Level 5 Est [id number]; 06/29/16 11:41:00 AGENTS' RECORDS CLERK, Acute pyelonephritis | Acute lower UTI | Toxic multinodul goiter | Benign essential hypertension | Renal lithiasis | Granulomatous lymphadenitis | Polyneuropathy Discontinued: Office Visit Level 4 Est 71238; 06/29/16 11:32:00 AGENTS' RECORDS CLERK, Acute pyelonephritis | Acute lower UTI | Renal lithiasis | Benign essential hypertension | Granulomatous lymphadenitis | Polyneuropathy Diagnosis: Renal lithiasis Comment: Ordered: Office Visit Level 5 Est 12769; 06/29/16 11:41:00 AGENTS' RECORDS CLERK, Acute pyelonephritis | Acute lower UTI | Toxic multinodul goiter | Benign essential hypertension | Renal lithiasis | Granulomatous lymphadenitis | Polyneuropathy Discontinued: Office Visit Level 4 Est 15891; 06/29/16 11:32:00 AGENTS' RECORDS CLERK, Acute pyelonephritis | Acute lower UTI | Renal lithiasis | Benign essential hypertension | Granulomatous lymphadenitis | Polyneuropathy Diagnosis: Toxic multinodul goiter Comment: Ordered: Office Visit Level 5 Est 19529; 06/29/16 11:41:00 AGENTS' RECORDS CLERK, Acute pyelonephritis | Acute lower UTI | Toxic multinodul goiter | Benign essential hypertension | Renal lithiasis | Granulomatous lymphadenitis | Polyneuropathy Additional Orders: Comment: Ordered: amoxicillin 500 mg oral capsule,500 mg 1 caps, Oral, TID, X 10 days, # 30 caps, 0 Refill(s), Pharmacy: [facility] #[id number], 1 caps Oral TID,x10 days Ordered: cephalexin 250 mg oral capsule,500 mg 2 caps, Oral, Daily , took one dose yesterday, 0 Refill(s) End of Orders ."
--- OUTSIDE RECORDS SUMMARY | 2016-10-25 09:49 | XMS REPORT | Referral Summary ---
Author Author [facility], [facility] Organization [facility] Address Unknown Phone Unavailable Care Team Providers Care Shuttle Spotter Name Role Phone Tano Rice Primary Care Physician [phone] Encounter VC Date(s): 08/22/16 - 08/22/16 [facility], U[facility] [address] [place] [address] [place] [address] [[email or web address]] Discharge Diagnosis: Overactive bladder Discharge Disposition: 01-Home or Self Care Attending Physician: Moises Leblanc MD Admitting Physician: Moises Leblanc MD Vital Signs Most recent to 1 oldest [Reference Range]: Blood Pressure 122/74 mmHg [90-140/60-90 mmHg] (08/22/16 8:29 AM) Problem List Condition Effective Dates Status [...] HG, # 30 tabs, 1 Refill(s), eRx: [facility] #[id number], TAKE ONE TABLET BY MOUTH DAILY . MAY TAKE AN EXTRA 2.5-5 MG NEEDED FOR SYSTOLI... Start Date: 08/12/16 Status: Ordered aspirin 325 mg, Oral, Daily, 0 Refill(s) Start Date: 05/29/16 Status: Ordered atenolol 25 mg oral tablet 25 mg 1 tabs, Oral, Daily, 0 Refill(s) Start Date: 05/29/16 Status: Ordered Klor-Con M20 oral tablet, extended release 20 mEq, Oral, Daily, # 90 tabs, 3 Refill(s), Pharmacy: [facility] #[id number] , 20 mEq Oral Daily,x90 days Start Date: 06/01/16 Stop Date: 05/27/17 Status: Ordered methimazole 5 mg oral tablet See Instructions, 3 tabs daily, # 90 tabs, 0 Refill(s) Start Date: 05/31/16 Status: Ordered oxyCODONE See Instructions, 7.5 mg Oral twice a week as needed, 0 Refill(s) Start Date: 05/29/16 Status: Ordered PriLOSEC 40 mg oral delayed release capsule 40 mg 1 caps, Oral, Daily, # 60 caps, 1 Refill(s), Pharmacy: [facility] # [id number], 1 caps Oral BID Start Date: 07/20/15 Status: Ordered solifenacin 10 mg oral tablet 10 mg 1 tabs, Oral, Daily, # 90 tabs, 0 Refill(s), Pharmacy: [facility] # [id number], 1 tabs Oral Daily,x90 days Start Date: 08/22/16 Stop Date: 11/20/16 Status: Ordered Results Urinalysis Most recent to 1 oldest [Reference Range]: UA WBC [0-4] 0-2 (08/22/16 8:52 AM) UA RBC [0-4] 0-4 (08/22/16 8:52 AM) Epithelial Cells 0-2 (08/22/16 8:52 AM) UA Hyal Cast [0-3] 1-3 (08/22/16 8:52 AM) Immunizations Given and Recorded Vaccine Date Status Refusal Reason tetanus/diphth/pertuss (Tdap) adult/adol 12/15/06 Recorded influenza virus vaccine, inactivated 06/15/16 Given pneumococcal 23-polyvalent vaccine 12/02/03 Recorded tetanus-diphth toxoids (Td) adult/adol 09/06/96 Recorded Procedures Procedure Date Related Diagnosis Body Site Lung - needle biopsy1, 2 05/29/16 Mastectomy3, 4 09/21/15 Esophagogastroduodenoscopy 07/16/15 Fine needle biopsy of lymph node5 04/16/15 Insertion of central venous catheter using 04/16/15 doppler ultrasound (US) guidance6 Colonoscopy7 07/11/14 Laminectomy and discectomy2012 Colonoscopy05/21/10 Cardiac catheterization 1995 LASIK - eye [...] 10 Assessment and Plan Extracted from: Title: Office Visit Note Author: Moises Leblanc MD Date: 08/22/16 Assessment/Plan We will do urinalysis today We will give her a trial with anticholinergic solifenacin 10 mg. Discussed the side effects ofdry mouth, constipation, dry eyesand dyspepsia. In addition to that I also advised her to avoid bladder irritants, spicy food and also practice timed voiding. Also discussed about pelvic floor exercises
--- OUTSIDE RECORDS SUMMARY | 2016-10-25 09:49 | XMS REPORT | Referral Summary ---
Author Author [facility] Organization [facility] Address Unknown Phone Unavailable Care Team Providers Care Research Physiologist Name Role Phone Tano Rice Primary Care Physician [phone] Encounter VC Date(s): 06/02/16 - 06/02/16 [facility] [address] [place] [id number] Discharge Disposition: 01-Home or Self Care Attending Physician: Doug Rice MD Admitting Physician: Doug Rice MD Vital Signs No data available for this section Problem List Condition Effective Dates Status Health [...] Dehydration(Confirme Active d) Acute Active diarrhea(Confirmed) DVT(Confirmed) 1996 Active DVT(Confirmed) 1998 Active Dysphagia(Confirmed) Active Epistaxis(Confirmed) Active Fever(Confirmed) Active [...] 500 mg 1 caps, Oral, TID, X 14 days, # 42 caps, 0 Refill(s), Pharmacy: [facility] #[id number], 1 caps Oral TID,x14 days Start Date: 06/01/16 Stop Date: 06/15/16 Status: Ordered aspirin 325 mg, Oral, Daily, 0 Refill(s) Start Date: 05/29/16 Status: Ordered atenolol 25 mg oral tablet 25 mg 1 tabs, Oral, Daily, 0 Refill(s) Start Date: 05/29/16 Status: Ordered Keflex 500 mg oral capsule 500 mg 1 caps, Oral, TID, X 5 days, # 15 caps, 0 Refill(s) Start Date: 05/31/16 Stop Date: 06/05/16 Status: Ordered Klor-Con M20 oral tablet, extended release 20 mEq, Oral, Daily, # 90 tabs, 3 Refill(s), Pharmacy: [facility] #[id number] , 20 mEq Oral Daily,x90 days Start [...] Daily, # 60 caps, 1 Refill(s), Pharmacy: [facility] # [id number], 1 caps Oral BID Start Date: 07/20/15 Status: Ordered Zofran ODT 4 mg, Oral, q4hr, as needed for nausea/vomiting, 0 Refill(s) Start Date: 05/29/16 Status: Ordered Results No data available for [...]
--- OUTSIDE RECORDS SUMMARY | 2016-10-25 09:50 | XMS REPORT | Referral Summary ---
Author Author [facility], [facility] Organization [facility] Address Unknown Phone Unavailable Care Team Providers Care Business Broker Name Role Phone Tano Rice Primary Care Physician [phone] Encounter Date(s): 06/01/16 - 06/01/16 [facility] [place] [id number]- Discharge Diagnosis: Polyneuropathy Discharge Diagnosis: Acute lower UTI Discharge Diagnosis: Benign essential hypertension Discharge Diagnosis: NAVARRO (dyspnea on exertion) Discharge Diagnosis: Hypokalemia Discharge Diagnosis: Hypercalcemia Discharge Diagnosis: Neutropenia Discharge Diagnosis: Acute pyelonephritis Discharge Diagnosis: Acute chest pain Discharge Diagnosis: Granulomatous lymphadenitis Discharge Diagnosis: Toxic multinodul goiter Discharge Diagnosis: Esophageal dysphagia Discharge Diagnosis: Renal lithiasis Discharge Diagnosis: Nausea Discharge Disposition: 01-Home or Self Care Attending Physician: Doug Rice MD Admitting Physician: Doug Rice MD Vital Signs Most recent to 1 oldest [Reference Range]: Temperature Tympanic 36.5 degC [36.6-38.1 degC] *LOW* (06/01/16 10:53 AM) Peripheral Pulse 88 bpm Rate [60-100 bpm] (06/01/16 10:53 AM) Blood Pressure 112/66 mmHg [90-140/60-90 mmHg] (06/01/16 10:53 AM) Problem List Condition Effective Dates Status [...] days, # 42 caps, 0 Refill(s), Pharmacy: [facility] #[id number], 1 caps Oral TID,x14 days Start Date: [...] Daily, # 90 tabs, 3 Refill(s), Pharmacy: [facility] #[id number] , 20 mEq Oral Daily,x90 days Start [...] Daily, # 60 caps, 1 Refill(s), Pharmacy: [facility] # [id number], 1 caps Oral BID Start Date: 07/20/15 Status: Ordered Zofran ODT 4 mg, Oral, q4hr, as needed for nausea/vomiting, 0 Refill(s) Start Date: 05/29/16 Status: Ordered Results Chemistry Most recent to 1 oldest [Reference Range]: PTH (Parathyroid 46.2 pg/mL Hormone) [6.6-88.9 (06/01/16 12:10 PM) pg/mL] Sodium Venous 140 mmol/L [136-144 mmol/L] (06/01/16 12:10 PM) Potassium Venous 3.8 mmol/L 1 [3.6-5.1 mmol/L] (06/01/16 12:10 PM) Calcium Ionized 1.22 mmol/L Venous [1.19-1.41 (06/01/16 12:10 PM) mmol/L] Total CO2 Venous 24 mmol/L [25-29 mmol/L] *LOW* (06/01/16 12:10 PM) Glucose Venous 108 mg/dL [70-100 mg/dL] *HI* (06/01/16 12:10 PM) BUN Venous [4-20] 13 (06/01/16 12:10 PM) Creatinine Venous 0.7 mg/dL [0.4-1.0 mg/dL] (06/01/16 12:10 PM) Venous CL [99-109 101 mmol/L mmol/L] (06/01/16 12:10 PM) 1Result Comment: This test was performed on a whole blood specimen. The presence or absence of hemolysis cannot be assessed. Hemolysis can falsely elevate potassium levels. Normals are for venous specimens only. Urinalysis Most recent to 1 oldest [Reference Range]: UA Color Mobile *ABN* (06/01/16 12:35 PM) UA Appear Turbid *ABN* (06/01/16 12:35 PM) UA pH [5.0-8.0] 5.5 (06/01/16 12:35 PM) UA Leuk Est Pos 1+ [Negative] *ABN* (06/01/16 12:35 PM) UA Nitrite Negative [Negative] (06/01/16 12:35 PM) UA Protein Pos 1+ [Negative] *ABN* (06/01/16 12:35 PM) UA Glucose Negative [Negative] (06/01/16 12:35 PM) UA Ketones Trace [Negative] *ABN* (06/01/16 12:35 PM) UA Urobilinogen 1.0 mg/dL [<1.0 mg/dL] (06/01/16 12:35 PM) UA Bili [Negative] Negative (06/01/16 12:35 PM) UA Blood [Negative] Negative (06/01/16 12:35 PM) UA Spec Grav 1.030 [1.003-1.030] (06/01/16 12:35 PM) Type Clean Catch (06/01/16 12:35 PM) UA WBC [0-4] 5-10 *ABN* (06/01/16 12:35 PM) UA RBC [0-4] 5-10 *ABN* (06/01/16 12:35 PM) Epithelial Cells 10-20 (06/01/16 12:35 PM) UA Mucous Present (06/01/16 12:35 PM) Immunizations Vaccine Date Refusal Reason tetanus/diphth/pertuss (Tdap) adult/adol 12/15/06 pneumococcal 23-polyvalent vaccine 12/02/03 tetanus-diphth toxoids (Td) adult/adol 09/06/96 Procedures Procedure Date Related Diagnosis Body Site Collection of venous blood by venipuncture 06/01/16 Lung - needle biopsy1, 2 05/29/16 Mastectomy3, [...] Patient Education Author: Doug Rice MD Date: Family Medicine Pyelonephritis, Adult Pyelonephritis is a kidney infection. In general, there are 2 main types of pyelonephritis: Infections that come on quickly without any warning (acute pyelonephritis ). Infections that persist for a long period of time (chronic pyelonephritis ). CAUSES Two main causes of pyelonephritis are: Bacteria traveling from the bladder to the kidney. This is a problem especially in women. The urine in the bladder can become filled with bacteria from multiple causes, including: Inflammation of the prostate gland (prostatitis). Sexual intercourse in females. Bladder infection (cystitis). Bacteria traveling from the bloodstream to the tissue part of the kidney. Problems that may increase your risk of getting a kidney infection include: Diabetes. Kidney stones or bladder stones. Cancer. Catheters placed in the bladder. Other abnormalities of the kidney or ureter. SYMPTOMS Abdominal pain. Pain in the side or flank area. Fever. Chills. Upset stomach. Blood in the urine (dark urine). Frequent urination. Strong or persistent urge to urinate. Burning or stinging when urinating. DIAGNOSIS Your caregiver may diagnose your kidney infection based on your symptoms. A urine sample may also be taken. TREATMENT In general, treatment depends on how severe the infection is. If the infection is mild and caught early, your caregiver may treat you with oral antibiotics and send you home. If the infection is more severe, the bacteria may have gotten into the bloodstream. This will require intravenous (IV) antibiotics and a hospital stay. Symptoms may include: High fever. Severe flank pain. Shaking chills. Even after a hospital stay, your caregiver may require you to be on oral antibiotics for a period of time. Other treatments may be required depending upon the cause of the infection. HOME CARE INSTRUCTIONS Take your antibiotics as directed. Finish them even if you start to feel better. Make an appointment to have your urine checked to make sure the infection is gone. Drink enough fluids to keep your urine clear or pale yellow. Take medicines for the bladder if you have urgency and frequency of urination as directed by your caregiver. SEEK IMMEDIATE MEDICAL CARE IF: You have a fever or persistent symptoms for more than 2-3 days. You have a fever and your symptoms suddenly get worse. You are unable to take your antibiotics or fluids. You develop shaking chills. You experience extreme weakness or fainting. There is no improvement after 2 days of treatment. MAKE SURE YOU: Understand these instructions. Will watch your condition. Will get help right away if you are not doing well or get worse. This information is not intended to replace advice given to you by your health care provider. Make sure you discuss any questions you have with your health care provider. Document Released: 07/24/2006 Document Revised: 01/22/2013 Document Reviewed: [employer] Patient Education 2016 [employer] No follow up information was provided. Extracted from: Title: multiple problems Author: Doug Rice MD Date: 06/01/16 Impression and Plan Diagnosis Acute chest pain (INE37-LU R07.9, Discharge, Medical). Acute lower UTI (QSX21-BR N30.00, Discharge, Medical). Acute pyelonephritis (ACG92-SR N10, Discharge, Medical). Benign essential hypertension (NRY60-UL I10, Discharge, Medical). NAVARRO (dyspnea on exertion) (DFU99-CU R06.09, Discharge, Medical). Esophageal dysphagia (RYP95-XM R13.14, Discharge, Medical). Granulomatous lymphadenitis (KTY32-JX I88.1, Discharge, Medical). Hypercalcemia (CFX04-GR E83.52, Discharge, Medical). Hypokalemia (XRQ41-NV E87.6, Discharge, Medical). Nausea (DYT47-SB R11.0, Discharge, Medical). Neutropenia (CTA52-CG D70.9, Discharge, Medical). Polyneuropathy (OLQ81-HO G62.9, Discharge, Medical). Renal lithiasis (RSI14-FX N20.0, Discharge, Medical). Toxic multinodul goiter (BSR83-AM E05.20, Discharge, Medical). Plan: 1) Rocephin 1 gm IM daily for 3 days for pyelonephritis. 2) Start the Amoxicillin orally right away. 3) Continue to drink 1-2 quarts of Pedialyte and/or Gatoraid daily. 4) Restart your potassium pills daily. 5) Continue your other meds the same, but don't fill the Keflex prescription. 6) See the urologist about your left kidney stone. 7) See Dr. Guzman about your toxic multinodular goiter. 8) Lab ordered today. 9) See me in 2 weeks and as needed.. Orders Orders (Selected) Outpatient Orders Ordered Office Visit Level 5 Est 06367: cefTRIAXone: 1 g, IntraMuscular, Daily Future (On Hold) CT Chest w/ Contrast: Metabolic Panel i-STAT: PTH Intact: Routine Urinalysis: Prescriptions Prescribed Klor-Con M20 oral tablet, extended release: 20 mEq, Oral, Daily, for 90 days, 90 tabs, 3 Refill(s) amoxicillin 500 mg oral capsule: 500 mg=1 caps, Oral, TID, for 14 days, 42 caps , 0 Refill(s). Dx/Order Association Plan: Diagnosis: Acute chest pain Comment: Ordered: Office Visit Level 5 Est [id number]; 06/01/16 11:29:00 CDT, Acute pyelonephritis | Acute chest pain | Granulomatous lymphadenitis | Esophageal dysphagia | Benign essential hypertension | Acute lower UTI | Toxic multinodul goiter | Neutropenia | NAVARRO (dyspnea on exertion) | Hypercalcemia |... Diagnosis: Acute lower UTI Comment: Ordered: Office Visit Level 5 Est [id number]; 06/01/16 11:29:00 CDT, Acute pyelonephritis | Acute chest pain | Granulomatous lymphadenitis | Esophageal dysphagia | Benign essential hypertension | Acute lower UTI | Toxic multinodul goiter | Neutropenia | NAVARRO (dyspnea on exertion) | Hypercalcemia |... Diagnosis: Acute pyelonephritis Comment: Ordered: cefTRIAXone; 1 g, IntraMuscular, Daily, Order Duration: 3 days, First Dose: 06/01/16 11:42:00 CDT, Stop Date: 06/04/16 8:59:00 CDT Office Visit Level 5 Est 38717; 06/01/16 11:29:00 CDT, Acute pyelonephritis | Acute chest pain | Granulomatous lymphadenitis | Esophageal dysphagia | Benign essential hypertension | Acute lower UTI | Toxic multinodul goiter | Neutropenia | NAVARRO (dyspnea on exertion) | Hypercalcemia |... Diagnosis: Benign essential hypertension Comment: Ordered: Office Visit Level 5 Est [id number]; 06/01/16 11:29:00 CDT, Acute pyelonephritis | Acute chest pain | Granulomatous lymphadenitis | Esophageal dysphagia | Benign essential hypertension | Acute lower UTI | Toxic multinodul goiter | Neutropenia | NAVARRO (dyspnea on exertion) | Hypercalcemia |... Diagnosis: NAVARRO (dyspnea on exertion) Comment: Ordered: Office Visit Level 5 Est [id number]; 06/01/16 11:29:00 CDT, Acute pyelonephritis | Acute chest pain | Granulomatous lymphadenitis | Esophageal dysphagia | Benign essential hypertension | Acute lower UTI | Toxic multinodul goiter | Neutropenia | NAVARRO (dyspnea on exertion) | Hypercalcemia |... Diagnosis: Esophageal dysphagia Comment: Ordered: Office Visit Level 5 Est [id number]; 06/01/16 11:29:00 CDT, Acute pyelonephritis | Acute chest pain | Granulomatous lymphadenitis | Esophageal dysphagia | Benign essential hypertension | Acute lower UTI | Toxic multinodul goiter | Neutropenia | NAVARRO (dyspnea on exertion) | Hypercalcemia |... Diagnosis: Granulomatous lymphadenitis Comment: Ordered: Office Visit Level 5 Est 09180; 06/01/16 11:29:00 CDT, Acute pyelonephritis | Acute chest pain | Granulomatous lymphadenitis | Esophageal dysphagia | Benign essential hypertension | Acute lower UTI | Toxic multinodul goiter | Neutropenia | NAVARRO (dyspnea on exertion) | Hypercalcemia |... Diagnosis: Hypercalcemia Comment: Ordered: Office Visit Level 5 Est [id number]; 06/01/16 11:29:00 CDT, Acute pyelonephritis | Acute chest pain | Granulomatous lymphadenitis | Esophageal dysphagia | Benign essential hypertension | Acute lower UTI | Toxic multinodul goiter | Neutropenia | NAVARRO (dyspnea on exertion) | Hypercalcemia |... Diagnosis: Hypokalemia Comment: Ordered: Office Visit Level 5 Est [id number]; 06/01/16 11:29:00 CDT, Acute pyelonephritis | Acute chest pain | Granulomatous lymphadenitis | Esophageal dysphagia | Benign essential hypertension | Acute lower UTI | Toxic multinodul goiter | Neutropenia | NAVARRO (dyspnea on exertion) | Hypercalcemia |... Diagnosis: Nausea Comment: Ordered: Office Visit Level 5 Est [id number]; 06/01/16 11:29:00 CDT, Acute pyelonephritis | Acute chest pain | Granulomatous lymphadenitis | Esophageal dysphagia | Benign essential hypertension | Acute lower UTI | Toxic multinodul goiter | Neutropenia | NAVARRO (dyspnea on exertion) | Hypercalcemia |... Diagnosis: Neutropenia Comment: Ordered: Office Visit Level 5 Est [id number]; 06/01/16 11:29:00 CDT, Acute pyelonephritis | Acute chest pain | Granulomatous lymphadenitis | Esophageal dysphagia | Benign essential hypertension | Acute lower UTI | Toxic multinodul goiter | Neutropenia | NAVARRO (dyspnea on exertion) | Hypercalcemia |... Diagnosis: Polyneuropathy Comment: Diagnosis: Renal lithiasis Comment: Diagnosis: Toxic multinodul goiter Comment: Ordered: Office Visit Level 5 Est [id number]; 06/01/16 11:29:00 CDT, Acute pyelonephritis | Acute chest pain | Granulomatous lymphadenitis | Esophageal dysphagia | Benign essential hypertension | Acute lower UTI | Toxic multinodul goiter | Neutropenia | NAVARRO (dyspnea on exertion) | Hypercalcemia |... Diagnosis: Hypercalcemia Comment: Diagnosis: Acute chest pain Comment: Diagnosis: Benign essential hypertension Comment: Diagnosis: Nausea Comment: Diagnosis: Hypokalemia Comment: Diagnosis: Hypercalcemia Comment: Diagnosis: Acute lower UTI Comment: Diagnosis: Acute pyelonephritis Comment: Additional Orders: Comment: Discontinued: Klor-Con M20,20 mEq, Oral, Daily, # 90 tabs, 3 Refill (s) Ordered: Klor-Con M20 oral tablet, extended release,20 mEq, Oral, Daily, # 90 tabs, 3 Refill(s), Pharmacy: [facility] #[id number], 20 mEq Oral Daily,x90 days Ordered: amoxicillin 500 mg oral capsule,500 mg 1 caps, Oral, TID, X 14 days, # 42 caps, 0 Refill(s), Pharmacy: [facility] #[id number], 1 caps Oral TID,x14 days End of Orders ."
--- OUTSIDE RECORDS SUMMARY | 2016-10-25 09:50 | XMS REPORT | Referral Summary ---
Author Author [facility], [facility] Organization [facility] Address Unknown Phone Unavailable Care Team Providers Care Program Director/Air Personality Name Role Phone Tano Rice Primary Care Physician [phone] Encounter Date(s): 09/19/16 - 09/19/16 [facility] [place] [address] Discharge Diagnosis: Mild major depression Discharge Diagnosis: Seborrheic dermatitis Discharge Diagnosis: Acute bronchitis Discharge Diagnosis: Left-sided thoracic back pain Discharge Diagnosis: Toxic multinodular goiter Discharge Diagnosis: Acute maxillary sinusitis Discharge Diagnosis: History of breast cancer Discharge Diagnosis: Benign essential hypertension Discharge Diagnosis: Renal lithiasis Discharge Diagnosis: Left ear pain Discharge Diagnosis: Granulomatous lymphadenitis Discharge Diagnosis: Dysuria Discharge Disposition: 01-Home or Self Care Attending Physician: Doug Rice MD Admitting Physician: Doug Rice MD Vital Signs Most recent to 1 oldest [Reference Range]: Temperature Tympanic 36.6 degC [36.6-38.1 degC] (09/19/16 7:40 AM) Peripheral Pulse 68 bpm Rate [60-100 bpm] (09/19/16 7:40 AM) Blood Pressure 138/82 mmHg [90-140/60-90 mmHg] (09/19/16 7:40 AM) Problem List Condition Effective Dates Status [...] HG, # 30 tabs, 1 Refill(s), eRx: [facility] #[id number], TAKE ONE TABLET BY MOUTH DAILY . MAY TAKE AN EXTRA 2.5-5 MG NEEDED FOR SYSTOLI... Start Date: 08/12/16 Status: Ordered amoxicillin-clavulanate 875 mg-125 mg oral tablet 1 tabs, Oral, q12hr, X 10 days, # 20 tabs, 0 Refill(s), Pharmacy: [facility] #[id number] Start Date: 09/19/16 Stop Date: 09/29/16 Status: Ordered aspirin 325 mg, Oral, Daily, 0 Refill(s) Start Date: 05/29/16 Status: Ordered atenolol 25 mg oral tablet 25 mg 1 tabs, Oral, Daily, 0 Refill(s) Start Date: 05/29/16 Status: Ordered Klor-Con M20 oral tablet, extended release 20 mEq, Oral, Daily, # 90 tabs, 3 Refill(s), Pharmacy: [facility] #[id number] , 20 mEq Oral Daily,x90 days Start [...] Daily, # 90 tabs, 0 Refill(s), Pharmacy: [facility] # [id number], 1 tabs Oral Daily,x90 days Start Date: 08/22/16 Stop Date: 11/20/16 Status: Ordered Results Urinalysis Most recent to 1 oldest [Reference Range]: UA Color Yellow (09/19/16 8:17 AM) UA Appear Sl Cloudy (09/19/16 8:17 AM) UA pH [5.0-8.0] 5.5 (09/19/16 8:17 AM) UA Leuk Est Pos 1+ [Negative] *ABN* (09/19/16 8:17 AM) UA Nitrite Negative [Negative] (09/19/16 8:17 AM) UA Protein Negative [Negative] (09/19/16 8:17 AM) UA Glucose Negative [Negative] (09/19/16 8:17 AM) UA Ketones Negative [Negative] (09/19/16 8:17 AM) UA Urobilinogen 0.2 mg/dL [<=1.0 mg/dL] (09/19/16 8:17 AM) UA Bili [Negative] Negative (09/19/16 8:17 AM) UA Blood [Negative] Trace *ABN* (09/19/16 8:17 AM) UA Spec Grav 1.025 [1.003-1.030] (09/19/16 8:17 AM) Type Clean Catch (09/19/16 8:17 AM) UA WBC [0-4] 10-20 *ABN* (09/19/16 8:17 AM) UA RBC [0-2] 0-2 (09/19/16 8:17 AM) Epithelial Cells 10-20 (09/19/16 8:17 AM) UA Bacteria Occasional *ABN* (09/19/16 8:17 AM) UA Hyal Cast 1-3 (09/19/16 8:17 AM) Immunizations Given and Recorded Vaccine Date [...] Patient Education Author: Doug Rice MD Date: 09/19 Allergy Sinusitis, Adult Sinusitis is redness, soreness, and inflammation of the paranasal sinuses. Paranasal sinuses are air pockets within the bones of your face. They are located beneath your eyes, in the middle of your forehead, and above your eyes. In healthy paranasal sinuses, mucus is able to drain out, and air is able to circulate through them by way of your nose. However, when your paranasal sinuses are inflamed, mucus and air can become trapped. This can allow bacteria and other germs to grow and cause infection. Sinusitis can develop quickly and last only a short time (acute) or continue over a long period (chronic). Sinusitis that lasts for more than 12 weeks is considered chronic. CAUSES Causes of sinusitis include: Allergies. Structural abnormalities, such as displacement of the cartilage that separates your nostrils (deviated septum), which can decrease the air flow through your nose and sinuses and affect sinus drainage. Functional abnormalities, such as when the small hairs (cilia) that line your sinuses and help remove mucus do not work properly or are not present. SIGNS AND SYMPTOMS Symptoms of acute and chronic sinusitis are the same. The primary symptoms are pain and pressure around the affected sinuses. Other symptoms include: Upper toothache. Earache. Headache. Bad breath. Decreased sense of smell and taste. A cough, which worsens when you are lying flat. Fatigue. Fever. Thick drainage from your nose, which often is green and may contain pus ( purulent). Swelling and warmth over the affected sinuses. DIAGNOSIS Your health care provider will perform a physical exam. During your exam, your health care provider may perform any of the following to help determine if you have acute sinusitis or chronic sinusitis: Look in your nose for signs of abnormal growths in your nostrils (nasal polyps). Tap over the affected sinus to check for signs of infection. View the inside of your sinuses using an imaging device that has a light attached (endoscope). If your health care provider suspects that you have chronic sinusitis, one or more of the following tests may be recommended: Allergy tests. Nasal culture. A sample of mucus is taken from your nose, sent to a lab, and screened for bacteria. Nasal cytology. A sample of mucus is taken from your nose and examined by your health care provider to determine if your sinusitis is related to an allergy. TREATMENT Most cases of acute sinusitis are related to a viral infection and will resolve on their own within 10 days. Sometimes, medicines are prescribed to help relieve symptoms of both acute and chronic sinusitis. These may include pain medicines, decongestants, nasal steroid sprays, or saline sprays. However, for sinusitis related to a bacterial infection, your health care provider will prescribe antibiotic medicines. These are medicines that will help kill the bacteria causing the infection. Rarely, sinusitis is caused by a fungal infection. In these cases, your health care provider will prescribe antifungal medicine. For some cases of chronic sinusitis, surgery is needed. Generally, these are cases in which sinusitis recurs more than 3 times per year, despite other treatments. HOME CARE INSTRUCTIONS Drink plenty of water. Water helps thin the mucus so your sinuses can drain more easily. Use a humidifier. Inhale steam 34 times a day (for example, sit in the bathroom with the shower running). Apply a warm, moist washcloth to your face 34 times a day, or as directed by your health care provider. Use saline nasal sprays to help moisten and clean your sinuses. Take medicines only as directed by your health care provider. If you were prescribed either an antibiotic or antifungal medicine, finish it all even if you start to feel better. SEEK IMMEDIATE MEDICAL CARE IF: You have increasing pain or severe headaches. You have nausea, vomiting, or drowsiness. You have swelling around your face. You have vision problems. You have a stiff neck. You have difficulty breathing. This information is not intended to replace advice given to you by your health care provider. Make sure you discuss any questions you have with your health care provider. Document Released: 07/24/2006 Document Revised: 08/14/2015 Document Reviewed: [employer] Patient Education 2016 [employer] No follow up information was provided. Extracted from: Title: several problems Author: Doug Rice MD Date: 09/19/16 Impression and Plan Diagnosis Benign essential hypertension (NPF94-CD I10, Discharge, Medical). Renal lithiasis (TOY43-WY N20.0, Discharge, Medical). Granulomatous lymphadenitis (RBX30-TJ I88.1, Discharge, Medical). Toxic multinodular goiter (WAD68-SO E05.20, Discharge, Medical). Left-sided thoracic back pain (DNB83-PQ M54.6, Discharge, Medical). History of breast cancer (YCX62-WO Z85.3, Discharge, Medical). Dysuria (OKY75-SO R30.0, Discharge, Medical). Acute maxillary sinusitis (WBL81-GH J01.00, Discharge, Medical). Acute bronchitis (CLB55-TV J20.9, Discharge, Medical). Left ear pain (MKU66-XK H92.02, Discharge, Medical). Seborrheic dermatitis (DIR82-UJ L21.9, Discharge, Medical). Mild major depression (FPD65-AD F32.0, Discharge, Medical). Plan: 1) Take the Augmentin as directed. 2) Rest and humidity is helpful. 3) See me in 1-2 weeks for recheck and possible surgical-medical clearance.. Orders Orders (Selected) Outpatient Orders InProcess (In Process) Urine Culture: Ordered Office Visit Level 4 Est 49448: Canceled Urine Culture: Completed UA (Urinalysis) with Culture if Indicated: Urine Microscopic: Future (On Hold) CT Chest Abdomen Pelvis w/ Contrast: Prescriptions Prescribed amoxicillin-clavulanate 875 mg-125 mg oral tablet: 1 tabs, Oral, q12hr, for 10 days, 20 tabs, 0 Refill(s). Dx/Order Association Plan: Diagnosis: Acute bronchitis Comment: Ordered: Office Visit Level 4 Est 71940; 09/19/16 7:42:00 [employer] D[employer] OPERATOR, Acute maxillary sinusitis | Dysuria | Left ear pain | Acute bronchitis | Seborrheic dermatitis | Benign essential hypertension | Toxic multinodular goiter | Renal lithiasis | Granulomatous lymphadenitis | History of breast cancer Diagnosis: Acute maxillary sinusitis Comment: Ordered: Office Visit Level 4 Est [id number]; 09/19/16 7:42:00 [employer] DRIER OPERATOR, Acute maxillary sinusitis | Dysuria | Left ear pain | Acute bronchitis | Seborrheic dermatitis | Benign essential hypertension | Toxic multinodular goiter | Renal lithiasis | Granulomatous lymphadenitis | History of breast cancer Diagnosis: Benign essential hypertension Comment: Ordered: Office Visit Level 4 Est [id number]; 09/19/16 7:42:00 [employer] DRIER OPERATOR, Acute maxillary sinusitis | Dysuria | Left ear pain | Acute bronchitis | Seborrheic dermatitis | Benign essential hypertension | Toxic multinodular goiter | Renal lithiasis | Granulomatous lymphadenitis | History of breast cancer Diagnosis: Dysuria Comment: Ordered: Office Visit Level 4 Est [id number]; 09/19/16 7:42:00 [employer] DRIER OPERATOR, Acute maxillary sinusitis | Dysuria | Left ear pain | Acute bronchitis | Seborrheic dermatitis | Benign essential hypertension | Toxic multinodular goiter | Renal lithiasis | Granulomatous lymphadenitis | History of breast cancer Other status: UA (Urinalysis) with Culture if Indicated; Urine, Clean Catch, Stat collect, 09/19/16 8:12:00 [employer] DRI[employer] OPERATOR, Once, Stop date 09/19/16 8:12: 00 [employer] DRI[employer] OPERATOR, Nurse Collect Non-Blood, Dysuria (Completed) Urine Culture; Urine, Routine collect, 09/19 8:12:00 [employer] DRIER OPERATOR, Stop date 09/19/16 8:12:00 [employer] DRIER OPERATOR, Nurse Collect Non-Blood, Dysuria (Canceled) Diagnosis: Granulomatous lymphadenitis Comment: Ordered: Office Visit Level 4 Est [id number]; 09/19/16 7:42:00 [employer]ES[employer] DRIER OPERATOR, Acute maxillary sinusitis | Dysuria | Left ear pain | Acute bronchitis | Seborrheic dermatitis | Benign essential hypertension | Toxic multinodular goiter | Renal lithiasis | Granulomatous lymphadenitis | History of breast cancer Diagnosis: History of breast cancer Comment: Ordered: Office Visit Level 4 Est 70242; 09/19/16 7:42:00 [employer] DRIER OPERATOR, Acute maxillary sinusitis | Dysuria | Left ear pain | Acute bronchitis | Seborrheic dermatitis | Benign essential hypertension | Toxic multinodular goiter | Renal lithiasis | Granulomatous lymphadenitis | History of breast cancer Diagnosis: Left ear pain Comment: Ordered: Office Visit Level 4 Est 06162; 09/19/16 7:42:00 [employer]ES[employer] DRIER OPERATOR, Acute maxillary sinusitis | Dysuria | Left ear pain | Acute bronchitis | Seborrheic dermatitis | Benign essential hypertension | Toxic multinodular goiter | Renal lithiasis | Granulomatous lymphadenitis | History of breast cancer Diagnosis: Left-sided thoracic back pain Comment: Diagnosis: Mild major depression Comment: Diagnosis: Renal lithiasis Comment: Ordered: Office Visit Level 4 Est 48410; 09/19/16 7:42:00 [employer]OTHES[employer] DRIER OPERATOR, Acute maxillary sinusitis | Dysuria | Left ear pain | Acute bronchitis | Seborrheic dermatitis | Benign essential hypertension | Toxic multinodular goiter | Renal lithiasis | Granulomatous lymphadenitis | History of breast cancer Diagnosis: Seborrheic dermatitis Comment: Ordered: Office Visit Level 4 Est 79064; 09/19/16 7:42:00 [employer]ES[employer] DRIER OPERATOR, Acute maxillary sinusitis | Dysuria | Left ear pain | Acute bronchitis | Seborrheic dermatitis | Benign essential hypertension | Toxic multinodular goiter | Renal lithiasis | Granulomatous lymphadenitis | History of breast cancer Diagnosis: Toxic multinodular goiter Comment: Ordered: Office Visit Level 4 Est 13707; 09/19/16 7:42:00 CLOTHESPIN DRIER OPERATOR, Acute maxillary sinusitis | Dysuria | Left ear pain | Acute bronchitis | Seborrheic dermatitis | Benign essential hypertension | Toxic multinodular goiter | Renal lithiasis | Granulomatous lymphadenitis | History of breast cancer Additional Orders: Comment: Ordered: Percocet 10/325 oral tablet,1 tabs, Oral, TID, as needed ear pain, bone pain, and achiness, 3/ month, on average, 0 Refill(s) Ordered: amoxicillin-clavulanate 875 mg-125 mg oral tablet,1 tabs, Oral, q12hr, X 10 days, # 20 tabs, 0 Refill(s), Pharmacy: [facility] # [id number] Ordered: omeprazole 20 mg oral delayed release capsule,20 mg 1 caps , Oral, Daily, # 30 caps, 0 Refill(s) End of Orders ."
--- OUTSIDE RECORDS SUMMARY | 2016-10-25 09:51 | XMS REPORT | Continuity of Care Document ---
Author Author [facility] Organization [facility] Address Unknown Phone Unavailable Support Name Relationship Address Phone BONY RASCON FACSS Caregiver [address] [place] [address] [place] [phone] AMANDA VAUGHN MD Caregiver [address] [place] [address] [address] [place], [place] [phone] ANGUS RAMIREZ Next Of Kin [address] [facility] [address] [place] [phone] CP Insurance Providers Payer Name Policy Number Subscriber Name Relationship [facility] [id number] Reyna Antony 20 Self Advance Directives Directive Response Recorded Date/Time Ordered Resuscitation Status Full Code 07/10/14 11:07am Resuscitation Documents on File No 07/11/14 6:41am Problems Medical Problems Problem Onset Date Status DEHYDRATION Unknown Active DYSPNEA Unknown Active POST OP PAIN Unknown Active DEHYDRATION Unknown Active DYSPNEA Unknown Active POST OP PAIN Unknown Active Medications Medication Dose Route Sig Days/Qty Instructions Order Date Discontinued Date Status Aspirin 81 Mg PO 04/30/10 12/31/11 Discontinued [Chantix] 04/30/10 12/31/11 Discontinued [Ibuprofen] 04/30/10 12/31/11 Discontinued [Lovastatin] 04/30/10 12/31/11 Discontinued [Potassium] 04/30/10 12/31/11 Discontinued [Synthroid] 04/30/10 12/31/11 Discontinued [Triamterine] 04/30/10 12/31/11 Discontinued Albuterol 17 Gm IH 05/14/10 12/31/11 Discontinued Potassium Chloride 20 Meq PO DAILY 12/31/11 04/13/13 Discontinued Aspirin 81 Mg PO DAILY 12/31/11 Active Ciprofloxacin Hcl 500 Mg PO TWICE A DAY 01/31/12 04/11/13 Discontinued Hydrocodone Bit/Acetaminophen 1 Tab PO NEEDED 04/11/13 04/13/13 Discontinued [Robaxin] PO NEEDED 04/11/13 04/13/13 Discontinued Promethazine Hcl 25 Mg PO NEEDED 04/11/13 04/13/13 Discontinued Amlodipine Besylate 5 Mg PO DAILY 07/10/14 Active Levothyroxine Sodium 25 Mcg PO BEFORE BREAKFAST Once daily before breakfast 07/10/14 Active Lisinopril 5 Mg PO DAILY 07/10/14 07/11/14 Discontinued Omeprazole 20 Mg PO BEFORE BREAKFAST 07/10/14 07/11/14 Discontinued Lisinopril 10 Mg PO DAILY 07/11/14 Active Omeprazole 10 Mg PO DAILY 07/11/14 Active Niacin BEDTIME 07/11/14 Active Social History Social History Problem Response Recorded Date/Time Chewing Tobacco Status No 04/13/2013 10:08pm Hx Substance Use No 07/11/2014 6:50am Hx Alcohol Use No 07/11/2014 6:50am Has the pt used tobacco in the last 12 months No 07/11/2014 6:50am Query Response Start Date Stop Date Smoking Status Former smoker Hospital Discharge Instructions No hospital discharge instructions. Plan of Care No plan of care. Functional Status No functional status results. Allergies, Adverse Reactions, Alerts Allergen Type Severity Reaction Status Last Updated Antihistamines - Alkylamine Adverse Reaction Intermediate HYPOTENSION Active 04/11/13 Hydrocodone Allergy Unknown SWELLING IN EYES Active 07/10/14 Acetaminophen Allergy Unknown SWELLING IN EYE Active 07/10/14 Methocarbamol Allergy Unknown SWELLING IN EYES AND HAND Active 07/10/14 Simvastatin Allergy Unknown RASH Active 07/10/14 Atorvastatin Allergy Unknown RASH Active 07/10/14 Immunizations Name Given Type Hx Influenza Vaccination No Historical Hx Pneumococcal Vaccination No Historical Hx Tetanus, Diptheria, Pertussis No Historical Hx Influenza Vaccination No Historical Hx Tetanus, Diptheria, Pertussis No Historical Vital Signs Acute Vital Signs Vital Response Date/Time Temperature (Fahrenheit) 97.6 deg F (96.8 - 99.1) Temperature (Calculated Celsius) 36.83678 degrees C (36.0 - 37.3) Temperature Source Temporal Pulse Rate (adult) 63 bpm (60 - 100) Respiratory Rate 20 breaths/min (10 - 20) O2 Sat by Pulse Oximetry 94 % (90 - 100) Oxygen Delivery Method Room Air Blood Pressure 153/91 mm Hg Blood Pressure Source Automatic Cuff Height 5 ft 5 in Weight 187 lb Body Mass Index 31.0 kg/m^2 Results Test Source Date Result Interp. Ref. Range Comments Alanine Aminotransferase (ALT/SGPT) April 13, 2013 9:36pm 21 U/L N 9 -52 Albumin April 13, 2013 9:36pm 4.1 G/DL N 3.5-5.0 Albumin/Globulin Ratio April 13, 2013 9:36pm 1.2 RATIO N 1.1-2.2 Alkaline Phosphatase April 13, 2013 9:36pm 84 U/L N 38-126 Amylase Level April 13, 2013 9:36pm 71 U/L N 30-110 Anion Gap April 13, 2013 9:36pm 10 MEQ/L N 5-15 Aspartate Amino Transf (AST/SGOT) April 13, 2013 9:36pm 12 U/L DL 14 -36 BUN/Creatinine Ratio April 13, 2013 9:36pm 16 RATIO N 6-26 Basophils # (Auto) April 10, 2013 11:55pm 0.1 T/MM3 N 0-0.2 Ordering r/o VTE Yes Basophils (%) (Auto) April 10, 2013 11:55pm 0.6 % N 0-2 Ordering r/ o VTE Yes Blood Urea Nitrogen April 13, 2013 9:36pm 13.0 MG/DL N 7-17 C-Reactive Protein January 31, 2012 12:00pm 30.9 MG/L H 0-9 Calcium Level April 13, 2013 9:36pm 9.2 MG/DL N 8.4-10.2 Calculated Osmolality April 13, 2013 9:36pm 260 MOSM/KG L 261-280 Carbon Dioxide Level April 13, 2013 9:36pm 29 MEQ/L N 22-30 Chloride Level April 13, 2013 9:36pm 96 MEQ/L L 98-107 Cholesterol Level January 01, 2012 8:30am 239 MG/DL H 132-199 Cholesterol/HDL Ratio January 01, 2012 8:30am 5.4 RATIO H 0-4.0 Creatinine April 13, 2013 9:36pm 0.8 MG/DL DN 0.7-1.2 D-Dimer April 10, 2013 11:55pm 650 NG/ML H 0-230 <224 NG/ML= PRESUMPTIVE NEGATIVE FOR PE OR DVT>224 NG/ML=ADDITIONAL EVALUATION FOR PE OR DVT RECOMMENDED Eosinophils # (Auto) April 10, 2013 11:55pm 0.2 T/MM3 N 0-0.5 Ordering r/o VTE Yes Eosinophils (%) (Auto) April 10, 2013 11:55pm 2.1 % N 0-4 Ordering r/o VTE Yes Erythrocyte Sedimentation Rate January 07, 2013 5:04pm 12 MM/HR N 0-20 Free Thyroxine June 10, 2009 11:00am 1.42 NG/DL N 0.78-2.19 Globulin April 13, 2013 9:36pm 3.3 G/DL N 2.4-3.6 Glucose Level April 13, 2013 9:36pm 100 MG/DL N 65-110 Hematocrit April 13, 2013 9:36pm 37.8 % N 36-46 Hemoglobin April 13, 2013 9:36pm 12.6 GM/DL N 12-16 LDL Cholesterol, Calculated January 01, 2012 8:30am 195 H 66-159 Lipase April 13, 2013 9:36pm 108 U/L N 23-300 Lymphocytes # (Auto) April 10, 2013 11:55pm 3.1 T/MM3 N 1-4.8 Ordering r/o VTE Yes Lymphocytes # (Manual) April 13, 2013 9:36pm 4.3 T/MM3 N 1-4.8 Lymphocytes % (Manual) April 13, 2013 9:36pm 33.0 % N 23-45 Lymphocytes (%) (Auto) April 10, 2013 11:55pm 31.2 % N 23-45 Ordering r/o VTE Yes Magnesium Level January 31, 2012 12:00pm 1.8 MG/DL N 1.6-2.3 Mean Corpuscular Hemoglobin April 13, 2013 9:36pm 30.1 UUG N 26-34 Mean Corpuscular Hemoglobin Concent April 13, 2013 9:36pm 33.3 GM/DL N 31-37 Mean Corpuscular Volume April 13, 2013 9:36pm 90.2 UM3 N 80-100 Mean Platelet Volume April 13, 2013 9:36pm 12.0 UM3 N 9.4-12.4 Monocytes # (Auto) April 10, 2013 11:55pm 1.0 T/MM3 H 0-0.8 Ordering r/o VTE Yes Monocytes # (Manual) April 13, 2013 9:36pm 0.4 T/MM3 N 0-0.8 Monocytes % (Manual) April 13, 2013 9:36pm 3.0 % N 0-9.0 Monocytes (%) (Auto) April 10, 2013 11:55pm 9.8 % H 0-9.0 Ordering r/o VTE Yes Neutrophils # (Auto) April 10, 2013 11:55pm 5.5 T/MM3 N 1.8-7.7 Ordering r/o VTE Yes Neutrophils # (Manual) April 13, 2013 9:36pm 8.3 T/MM3 H 1.8-7.7 Neutrophils % (Manual) April 13, 2013 9:36pm 64.0 % N 33-66 Neutrophils (%) (Auto) April 10, 2013 11:55pm 56.1 % N 33-66 Ordering r/o VTE Yes Platelet Count April 13, 2013 9:36pm 299 T/MM3 N 130-400 Potassium Level April 13, 2013 9:36pm 3.9 MEQ/L N 3.6-5 RDW Standard Deviation April 13, 2013 9:36pm 40.8 FL N 36.9-50.2 Red Blood Count April 13, 2013 9:36pm 4.19 M/MM3 N 4.00-5.20 Sodium Level April 13, 2013 9:36pm 135 MEQ/L N 134-144 Thyroid Stimulating Hormone (TSH) January 31, 2012 12:00pm 0.36 MIU/L L 0.47-4.68 Total Bilirubin April 13, 2013 9:36pm 0.90 MG/DL N 0.20-1.30 Total Protein April 13, 2013 9:36pm 7.4 G/DL N 6.3-8.2 Triglycerides Level January 01, 2012 8:30am 80 MG/DL N 35-135 Troponin I January 31, 2012 12:00pm < 0.012 ng/ml 0-0.12 Urine Bilirubin April 13, 2013 10:45pm Negative - Has specimen been collected/obtained? Y Urine Blood April 13, 2013 10:45pm Negative - Has specimen been collected/obtained? Y Urine Collection Type April 13, 2013 10:45pm Cleancatch-midstream - Has specimen been collected/obtained? Y Urine Color April 13, 2013 10:45pm Yellow - Has specimen been collected/obtained? Y Urine Glucose (UA) April 13, 2013 10:45pm Negative - Has specimen been collected/obtained? Y Urine Ketones April 13, 2013 10:45pm Negative - Has specimen been collected/obtained? Y Urine Leukocyte Esterase April 13, 2013 10:45pm Negative - Has specimen been collected/obtained? Y Urine Nitrite April 13, 2013 10:45pm Negative - Has specimen been collected/obtained? Y Urine Protein April 13, 2013 10:45pm Negative - Has specimen been collected/obtained? Y Urine RBC January 31, 2012 12:15pm None seen /HPF - Has specimen been collected/obtained? Y Urine Specific [place] April 13, 2013 10:45pm 1.010 L - Has specimen been collected/obtained? Y Urine Squamous Epithelial Cells January 31, 2012 12:15pm Many - Has specimen been collected/obtained? Y Urine Turbidity April 13, 2013 10:45pm Clear - Has specimen been collected/obtained? Y Urine Urobilinogen April 13, 2013 10:45pm Normal EU/DL - Has specimen been collected/obtained? Y Urine WBC January 31, 2012 12:15pm 0-1 /HPF - Has specimen been collected/obtained? Y Urine pH April 13, 2013 10:45pm 8.0 - Has specimen been collected /obtained? Y VLDL Cholesterol January 01, 2012 8:30am 16.0 MG/DL N 0-28 White Blood Count April 13, 2013 9:36pm 12.9 T/MM3 H 4.5-11.0 Urinalysis Comment April 13, 2013 10:45pm Microscopic not ind. - Has specimen been collected/obtained? Y Lab Scanned Report January 07, 2013 5:21pm LAB TEST FORM REQUEST [id number] - HDL Cholesterol Direct January 01, 2012 8:30am 44 MG/DL N 40-60 Glomerular Filtration Rate Calc April 13, 2013 9:36pm 74 - Immature Granulocyte # (Auto) April 10, 2013 11:55pm 0.02 T/MM3 N 0.00-0.03 Ordering r/o VTE Yes Immature Granulocyte % (Auto) April 10, 2013 11:55pm 0.2 % N 0.0- 0.5 Ordering r/o VTE Yes DL-Etg-J-Type Natriuretic Peptide April 10, 2013 11:55pm 653 PG/ML H 0-175 Rule in cut points: <50 years old=450; 50-75 years old=900; >75 years old=1800; When utilizing ProBNP rule-in cut points, adjustment for impaired renal function is typically not required. Throat Culture Throat January 01, 2012 5:10am Procedures Procedure Status Date Provider(s) Colonoscopy completed 07/11/14 BONY RASCON MD, FACS, CWS
[2016-10-25 10:04] VITALS: Ht 162.6 cm; Wt 80.2 kg
[2016-10-25 10:05] VITALS: BP 138/85; PULSE 70; RESP 12; TEMP 98.7; O2SAT 96
[2016-10-25] MEDS ORDERED: CEPH-583 PO ×2 (10:21→12:17)
[2016-10-25] MEDS ORDERED: ANAS1TAB8 PO (10:26)
[2016-10-25] MEDS ORDERED: NITR100C4 PO (10:27)
[2016-10-25] MEDS ORDERED: LIDOCAINE 1% (10mg/ml) 2ml SDV INJ ONE (10:30)
[2016-10-25] MEDS ORDERED: LR 1,000 ML IV PRN (10:30)
--- NOTE | 2016-10-25 11:02 | ANESPREOP ---
Anesthesia Record Date and Time DATE: 10/25/16 TIME: 10:58 Proposed Surgical Procedure Lt breast exploration with drain removal NPO since: 2199 Allergies: Coded Allergies: atorvastatin (Unverified Allergy, Unknown, RASH, 10/25/16) hydrocodone (Unverified Allergy, Unknown, SWELLING IN EYES, 10/25/16) methocarbamol (Unverified Allergy, Unknown, SWELLING IN EYES AND HAND, ) simvastatin (Unverified Allergy, Unknown, RASH, 10/25/16) Antihistamines - Alkylamine (Verified Adverse Reaction, Intermediate, HYPOTENSION, 10/25/16) Tetracyclic Antidepressants (Verified Adverse Reaction, Mild, stomach issues, 10/25/16) Ht/Wt/BMI Height: 5 ' 4.00 " Weight: 80.200 kg BMI: 30.4 kg/m2 Vital Signs Date Time Temp Pulse Resp B/P Pulse Ox O2 Delivery O2 Flow Rate FiO2 10/25/16 10:05 98.7 70 12 138/85 96 Room Air Medications Inpatient Medications Current Medications Medications (Trade) Dose Ordered Sig/Rama Start Time Stop Time Status Last Admin Dose Admin Lactated Ringer's (Lactated Ringers) 1,000 ml @ 50 mls/hr Q20H PRN 10/25/16 10:30 UNV Amlodipine Besylate (Amlodipine Besylate) 5 Mg Tablet, 5 MG PO DAILY, (Reported) Last Taken: on 10/25/16 0800 Anastrozole (Anastrozole) 1 Mg Tablet, 1 TAB PO DAILY, (Reported) Last Taken: on 10/24/16 0800 Aspirin (Aspirin) 325 Mg Tablet, 325 MG PO DAILY PRN for PRN ORDERS, (Reported) Last Taken: on 09/21/16 Atenolol (Atenolol) 25 Mg Tablet, 25 MG PO DAILY, ( Reported) Last Taken: on 10/25/16 0800 Cephalexin (Keflex) 500 Mg Capsule, 1 CAP PO TID, (Reported) Last Taken: on 10/24/16 0800 Cyclobenzaprine HCl (Cyclobenzaprine HCl) 5 Mg Tablet, 1 TAB PO Q6H PRN for MUSCLE SPASM Last Taken: on 10/22/16 Methimazole (Methimazole) 10 Mg Tablet, 1.5 TAB PO DAILY, (Reported) Last Taken: on 10/24/16 0800 Nitrofurantoin Monohyd/M-Cryst (Macrobid 100 mg Capsule) 100 Mg Capsule, 1 CAP PO DAILY, (Reported) Take 2 (100 mg) capsules, by mouth, twice daily with meals. Last Taken: on 10/24/16 0800 Omeprazole (Omeprazole) 20 Mg Capsule.dr, 20 MG PO ACB, (Reported) Take 1 capsule, by mouth, one time a day (before breakfast). Last Taken: on 10/24/16 0800 Ondansetron (Zofran Odt) 4 Mg Tab.rapdis, 4 MG PO Q6HR, (Reported) Last Taken: on Unknown Date & Time Oxycodone HCl/Acetaminophen (Percocet 5- 325 mg Tablet) 5-325 Tablet, 1-2 TAB PO Q4-6HPRN PRN for PAIN Last Taken: on 10/23/16 Potassium Chloride (Potassium Chloride) 20 Meq Tablet.er, 20 MEQ PO DAILY, (Reported) Last Taken: on 10/24/16 0800 Currently on Beta Miguel Angel: Yes Beta Miguel Angel Last Taken: 10/25/16 @ 0800 Medical/Surgical History Anesthesia PMH: Reports: *Angina (due to PE - 1992 & 1996), *Hypertension, Anesthesia Reactions (SLOW TO AWAKEN, NO AIRWAY ISSUES KNOWN; occas. Nausea), Back Problems (back lumbar fusion ), COPD (HAD AN XRAY IN PAST THAT SHOWED EMPHYSEMA), Cancer (WILLIAM BREAST CA), Deep Vein Thrombosis (HX PE IN LUNGS- 1992 & 1996), Obesity, Pneumonia, Reflux, Renal Disease (goes into acute renal failure easily from dye from scans), Thyroid Disease (GOITER--on med) Smoking Status: Former smoker (quit 30 years ago) Use Chewing Tobacco?: No Second Hand Exposure: No Substance Use Type: does not use Alcohol Intake: none Past Surgical History Orthopedic Surgeries: Yes - back Abdominal Surgeries: Yes - LAP APPY Genitourinary Surgeries: Yes - STONE REMOVALS,CYSTOSCOPY,LITHOTRIPSY Cardiac Surgeries: Yes - HEART CATH Endocrine Surgeries: No Reproductive Surgeries: Yes - D&C, REGAN; William. mastectomy w/ lymph nodes removed on the right Neurological Surgeries: Yes - LAMINECTOMY Ear Surgeries: Yes - L MASTOIDECTOMY Nose Surgeries: No Throat Surgeries: Yes - T&A, EGD Other Surgeries: Yes - COLONOSCOPY, PORT-A-CATH INSERTION Anesthesia Adverse Reactions: FOUND none, FOUND other Pertinent Findings EKG Rhythm: Sinus Rhythm Physical Exam Respiratory: Bilat breath sounds equal, Lungs clear Cardiovascular: FOUND Regular rate, rhythm Airway Assessment Mallampati Score: I TMD: 3 Fingerbreadths Neck Extension: Fair Overall Assessment: No Airway Concerns ASA: 3 Plan Anesthesia Plan: LMA, GETA Discussion Discussed risks/options/alternatives of anesthesia and questions answered. Patient consents. Nursing pain assessment noted. Present: Family Member Attestation Statement Prior to the delivery of any anesthetic medication, I examined the patient, developed the plan, obtained the patient's consent and discussed the risk and benefits of the procedure with the patient/guardian. AUDREY GARRISON CRNA Oct 25, 2016 11:01
[2016-10-25] MEDS ORDERED: PROPOFOL 500mg 50 ML IV ONE (11:05)
[2016-10-25] MEDS ORDERED: BUPIVACAINE 0.25% (2.5mg/ml) INJ 30ml SDV ONE (11:15)
[2016-10-25] MEDS ORDERED: CEFAZOLIN 1 GRAM INJECTION IV ONE (11:30)
[2016-10-25] MEDS ORDERED: GENTAMICIN 80 MG/2 ML INJECTION ONE (11:40)
[2016-10-25] MEDS ORDERED: CEFAZOLIN 1 GRAM INJECTION ONE (11:40)
[2016-10-25] MEDS ORDERED: FENTANYL 250mcg/5ml INJECTION ONE (11:44)
[2016-10-25 12:15] VITALS: BP 108/60; PULSE 75; RESP 12; TEMP 97.2; O2SAT 99
[2016-10-25] MEDS ORDERED: ATROPINE 1mg/10ml Syringe IV PRN (12:15)
[2016-10-25] MEDS ORDERED: ONDANSETRON 4mg/2ml INJECTION IV PRN (12:15)
[2016-10-25] MEDS ORDERED: OXYCODONE/APAP 5mg/325mg TABLET PO PRN (12:15)
[2016-10-25] MEDS ORDERED: OXYC1TAB8 PO (12:17)
--- NOTE | 2016-10-25 12:18 | PDPROCED ---
Procedure Note Date 10/25/16 Procedure Name Removal of surgical drain left breast Procedure Detail Preop dx: Adherent drain left breast post placement of tissue solutions market consultant Postop dx: Same Anesthesia: TIVA EBL: NA Case: Clean contaminated Complications: None ROCK KENDALL MD Oct 25, 2016 12:17
[2016-10-25 12:30] VITALS: BP 113/75; PULSE 70; RESP 14; O2SAT 93
--- NOTE | 2016-10-25 12:31 | ANESPO ---
Post-Op Note Date 10/25/16 Time: 12:30 Status Pt Participated in Evaluation: Pt participated in person Vital Signs Date Time Temp Pulse Resp B/P Pulse Ox O2 Delivery O2 Flow Rate FiO2 10/25/16 12:15 97.2 75 12 108/60 99 Mask 6.00 Respiratory Function: Airway patent, Regular respirations Cardiovascular Function: Regular pulse Mental Status: Alert/oriented Pain Level Intensity: 0 Hydration: Taking po fluids Complications during Recovery None apparent Follow-Up Instructions Instructions Per Surgeon AUDREY GARRISON CRNA Oct 25, 2016 12:31
[2016-10-25 12:45] VITALS: BP 111/72; PULSE 72; RESP 14; O2SAT 96
[2016-10-25] MEDS ORDERED: BACITRACIN TOPICAL OINTMENT 15 G TUBE TOP ONE (14:08)
[2016-10-25] MEDS ORDERED: BACITRACIN INJ. 50,000 UNITS VL INJ ONE (14:08)
--- NOTE | 2016-10-25 16:21 | OPNOTEF ---
DATE OF OPERATION 10/25/2016 PREOPERATIVE DIAGNOSIS Adherent J-P drain left breast. POSTOPERATIVE DIAGNOSIS Adherent J-P drain left breast. OPERATION Removal of drain, left breast. SURGEON Allison Montiel M.D. ANESTHESIA TIVA INDICATIONS Please see the patient's previous operative reports for the details of her history and prior surgery. Of note, she had undergone placement of a left tissue telesales agent approximately three weeks prior and had drains that were present. On her postoperative visit yesterday for drain removal, although the right drain was removed easily, the left drain appeared to be adherent. While attempting to remove the drain, the patient experienced significant pain and it was deemed advisable to remove the drain in the operating room. On exam, the skin flaps were intact and viable with a drain present on the left breast. The risks, benefits and alternatives were discussed with the patient and she understood and wished to proceed. DESCRIPTION OF PROCEDURE The patient was brought to the operating room and then, after suitable TIVA had been obtained, the left breast was prepped and draped in the usual sterile manner. Once the patient was anesthetized, one final attempt was made to remove the drain which now, although slightly adherent, was able to be removed intact without reopening the left breast. The drain site was then dressed with a dry sterile dressing, the patient was then awakened and brought to the recovery room in stable condition. There was no blood loss. The case was clean/contaminated. No specimens. MTDD
== END 2016-10-25 12:55 | disposition home or self-care (01) ==
LOC: SCU 09:42
PROVIDERS: ATTEND Surgery Plastic and Reconstructive Surgery
DX: Z48.03 Encounter for change or removal of drains (principal); E05.90 Thyrotoxicosis, unspecified without thyrotoxic crisis or storm; F41.9 Anxiety disorder, unspecified; F32.9 Major depressive disorder, single episode, unspecified; M81.0 Age-related osteoporosis without current pathological fracture; Z79.82 Long term (current) use of aspirin; Z79.899 Other long term (current) drug therapy
CPT/HCPCS: 19499; J0690; J1580; J2704; J3010; J7120